=== PATIENT | female | born 1955 | race Caucasian/White ===

== ENCOUNTER 2020-12-28 11:53 | Outpatient (RCR) | payer MEDICARE, SELFPAY ==
[2020-12-28] MEDS: COVID-19 VACC, MRNA(PFIZER)/PF 30 MCG/0.3 ML SYRINGE IM (13:40)
[2021-01-18] MEDS: COVID-19 VACC, MRNA(PFIZER)/PF 30 MCG/0.3 ML SYRINGE IM (13:35)
== END 2021-03-29 23:59 ==
LOC: IMMUN 11:53
PROVIDERS: PCP Nurse Practitioner Primary Care; Visit Provider Family Medicine
DX: Z23 Encounter for immunization (principal)
CPT/HCPCS: 0001A; 0002A; 91300

== ENCOUNTER → 2021-07-12 10:39 | Outpatient (CLI) | payer MEDICARE, SELFPAY ==
[2021-07-12 10:50] LABS: Mucous, Urine 0 SEEN /hpf (<or=2+)
[2021-07-12 10:58] LABS: Color, Urine Yellow (Yellow); Glucose, Dipstick Normal (Normal); Ketone-Dipstick Negative (Negative); Leukocyte Esterase-Dipstick Negative /ul (Negative); Nitrite-Dipstick Negative (Negative); Occult Blood-Urine 10 /ul (Negative); Protein-Dipstick Negative (Negative); Specific Gravity, Urine 1.015 (1.002-1.030); Urine Bilirubin Dipstick Negative (Negative); Urine Clarity Clear (Clear); Urine Urobilinogen Normal (Normal)
[2021-07-12 11:11] LABS: Bacteria RARE /hpf (None Seen); Red Blood Cells-Urine 0-5 SEEN /hpf (0-5); Squamous Epithelial Cells - UA 0-5 SEEN /hpf (5-10); White Blood Cells 0-5 SEEN /hpf (0-5)
== END ==
PROVIDERS: PCP Nurse Practitioner Primary Care; Referring Provider Nurse Practitioner Adult Health; Visit Provider Nurse Practitioner Adult Health
DX: R31.29 Other microscopic hematuria (principal)
CPT/HCPCS: 81001; 87086; 87088

== ENCOUNTER → 2021-08-22 15:14 | Outpatient (CLI) | payer MEDICARE, OTHER, SELFPAY ==
--- NOTE | 2021-08-22 15:28 | MRI_ITS ---
STUDY: MRI BRAIN WITH AND WITHOUT CONTRAST (ATTENTION INTERNAL AUDITORY CANALS - I.A.C.''s) REASON FOR EXAM: Female, 66 years old. [place], frontal head pressure, dizziness TECHNIQUE: Standardized multiplanar fat and water weighted pulse sequences were obtained. IV 25cc dotarem was administered for the contrast portion of the examination. COMPARISON: None. FINDINGS: Normal bilateral temporal bones. Normal bilateral internal auditory canals. There is no demonstrated intracanalicular or cisternal vestibular schwannoma (acoustic neuroma). There is no enhancement of the bilateral VIIth or VIIIth cranial nerves. Normal bilateral cochlea, vestibules and semicircular canals. Mild cerebral and cerebellar atrophy. Minor periventricular white matter ischemic changes without mass effect or restricted diffusion Normal bilateral basal ganglia. Normal thalami. Normal flow voids within the major intracranial circulation suggesting patency by spin echo criteria. Normal venous enhancement. There is no enhancing intra-axial or extra-axial abnormality. There is no extra-axial fluid accumulation. Normal sella turcica, pituitary gland, infundibular stalk, optic chiasm and hypothalamus. Normal tectal plate and pineal gland. Normal midbrain, alvaro and medulla. Normal cerebellum. Normal basal cisterns. Postsurgical changes of the left orbit within the constraints of a routine brain study. Normal visualized paranasal sinuses. Normal calvarium and skull base. Normal visualized soft tissue structures. Normal visualized upper cervical spine. MRI/Brain W/WO Contrast IMPRESSION: Mild cerebral and cerebellar atrophy with periventricular white matter ischemic changes. No evidence for acute infarct No evidence for acoustic or vestibular schwannoma Electronically Signed: Nico Hillman MD at 17:38 EDT , Service support ,
[2021-08-23 10:25] LABS: CREATININE FINGERSTICK 1.2 mg/dL (0.55-1.02)
== END ==
PROVIDERS: PCP Nurse Practitioner Primary Care; Visit Provider Otolaryngology
DX: R27.0 Ataxia, unspecified (principal)
CPT/HCPCS: 70553; A9575

== ENCOUNTER → 2021-09-06 09:11 | Outpatient (CLI) | payer MEDICARE, OTHER, SELFPAY ==
[2021-09-06 10:23] LABS: AST(SGOT) 20 U/L (15-37); Alanine Aminotransfer ALT/SGPT 24 U/L (13-56); Albumin, Serum 3.5 g/dL (3.2-5.0); Alkaline Phosphatase 106 U/L (45-117); Bilirubin, Direct 0.15 mg/dL (0.00-0.30); Cholesterol 196 mg/dL (200); Globulin 4.1 g/dL (2.2-4.2); High Density Lipoprotein 40 mg/dL; Protein, Total 7.6 g/dL (6.4-8.2); Triglycerides 160 mg/dL; Very Low Density Lipoprotein 32 mg/dL (5-40)
== END ==
PROVIDERS: PCP Nurse Practitioner Primary Care; Referring Provider Internal Medicine Cardiovascular Disease; Visit Provider Internal Medicine Cardiovascular Disease
DX: I42.9 Cardiomyopathy, unspecified (principal); E78.00 Pure hypercholesterolemia, unspecified; I10 Essential (primary) hypertension; I25.10 Atherosclerotic heart disease of native coronary artery without angina pectoris; I47.1 Supraventricular tachycardia; I48.91 Unspecified atrial fibrillation
CPT/HCPCS: 36415; 80061; 80076

== ENCOUNTER → 2021-09-08 08:49 | Outpatient (CLI) | payer MEDICARE, OTHER, SELFPAY ==
--- NOTE | 2021-09-08 08:52 | ECHOCS_ITS ---
Reason For Study: CAD/ASHD Procedure This was a 2D Doppler, Color Flow transthoracic echocardiogram. The study was technically difficult. Contrast injection was performed. Exam performed in department. Left Ventricle Based upon the 2D echocardiographic contrast images obtained there appears to be grossly normal left ventricular size, wall motion, and borderline low LV systolic function. The estimated ejection fraction is 50 %. Diastolic function is indeterminate. Right Ventricle Normal RV size. Normal systolic function. Atria Normal left atrium. Normal right atrium. No doppler evidence for ASD. Mitral Valve There is no mitral annular calcification. Normal mitral valve. Trivial mitral valve insufficiency. Tricuspid Valve Normal tricuspid valve. Mild tricuspid valve insufficiency. Right ventricular systolic pressure estimated to be 36 mmHg. Aortic Valve Trisinus/trileaflet aortic valve. Normal aortic valve. Pulmonic Valve The pulmonic valve is not well visualized. Trivial pulmonic valve insufficiency. Great Vessels Normal sized aortic root. Pericardium/Pleural No pericardial effusion. Medication 22 gauge I.V. with prn adaptor inserted into left arm. Diluted definity 3ml given slow IV push to enhance endocardial definition. MMode/2D Measurements & Calculations LVIDd: 5.0 cm IVSd: 0.88 cm Ao root diam: 2.8 cm LVIDs: 3.3 cm LVPWd: 0.96 cm RVDd: 3.1 cm FS: 34.4 % LAV(MOD-bp): 29.6 ml LVAd ap4: 32.0 cm2 SV(MOD-sp4): 68.9 ml LAV(MOD-bp) Indexed: 12.2 ml/m2 LVLd ap4: 7.3 cm LAV(MOD-sp2): 28.1 ml EDV(MOD-sp4): 115.0 ml LAV(MOD-sp4): 28.7 ml EDV(sp4-el): 118.4 ml LVAs ap4: 18.6 cm2 LVLs ap4: 6.1 cm ESV(MOD-sp4): 46.1 ml ESV(sp4-el): 48.4 ml EF(MOD-sp4): 59.9 % EF(sp4-el): 59.1 % SV(sp4-el): 70.0 ml LA A4 area: 12.7 cm2 LA dimension(2D): 3.8 cm RA A4 area: 11.1 cm2 Time Measurements MV dec time: 0.20 sec Doppler Measurements & Calculations MV E max roshan: 54.0 cm/sec Lat Peak E' Roshan: 8.0 cm/sec Med Peak E' Roshan: 6.5 cm/sec MV A max roshan: 64.7 cm/sec E/E' lat: 6.8 E/E' med: 8.4 MV E/A: 0.83 Ao V2 max: 153.2 cm/sec LV V1 max: 99.5 cm/sec PA V2 max: 123.7 cm/sec Ao max P.4 mmHg LV V1 max P.0 mmHg TR max roshan: 288.4 cm/sec TR max P.3 mmHg ECHO/Echo Complete W/ Contrast Interpretation Summary The study was technically difficult. Contrast injection was performed. Based upon the 2D echocardiographic contrast images obtained there appears to b e grossly normal left ventricular size, wall motion, and borderline low LV systolic function. The estimated ejection fraction is 50 %. Trivial mitral valve insufficiency. Mild tricuspid valve insufficiency. Trivial pulmonic valve insufficiency. Right ventricular systolic pressure estimated to be 36 mmHg. Diastolic function is indeterminate. Ordering Physician: Neo Beltran Referring Physician: CADEN KIMBALL Performed By: Ysabel Jefferson RDCS
== END ==
PROVIDERS: PCP Nurse Practitioner Primary Care; Referring Provider Internal Medicine Cardiovascular Disease; Visit Provider Internal Medicine Cardiovascular Disease
DX: I25.10 Atherosclerotic heart disease of native coronary artery without angina pectoris (principal); I10 Essential (primary) hypertension; I42.9 Cardiomyopathy, unspecified; I47.1 Supraventricular tachycardia; I48.91 Unspecified atrial fibrillation
CPT/HCPCS: 93225; 93226; 93306; Q9957; A4216; C8929; J3490

== ENCOUNTER → 2021-09-27 06:03 | Outpatient (CLI) | payer MEDICARE, OTHER, SELFPAY ==
--- NOTE | 2021-09-27 07:58 | STRESSREP_ITS ---
Stress Test Report Date: 09-27-2021 Procedure: Pharmacologic stress nuclear imaging study Indications: Abnormal ECG/left bundle branch block; atrial fibrillation; CAD; cardiomyopathy Consent: Per the patient Procedure: The patient underwent pharmacologic (Regadenoson 0.4mg ) evaluation with a peak heart rate of 109 beats per minute (71%predicted maximal heart rate) and a peak blood pressure of 140/70 mmHg. The baseline ECG demonstrated atrial fibrillation; nonspecific IVCD (left- sided). The peak pharmacologic ECG demonstrated no obvious ECG changes. There were occasional PVCs pretest, during infusion, and in recovery. There was no complaint of chest discomfort during pharmacologic infusion or recovery. The examination was discontinued secondary to completion of protocol. Impression: 1. Pharmacologic (Regadenoson) evaluation 2. Peak pharmacologic ECG with continued nonspecific IVCD (left-sided). 3. There were occasional PVCs pretest, during infusion, and recovery. 4. Nuclear images pending Myocardial perfusion imaging study: Technique: The patient was injected with 14.9 millicuries of technetium 99m Cardiolite and subsequently rest SPECT Cardiolite nuclear imaging was obtained in the horizontal long, vertical long, and short axis views. The patient underwent pharmacologic (Regadenoson) evaluation with a peak heart rate of 109 beats per minute (71% percent predicted maximal heart rate) and a peak blood pressure of 140/70 mmHg. The patient was injected with 44.6 millicuries of technetium 99m Cardiolite and subsequently stress SPECT Cardiolite nuclear imaging was obtained in the horizontal long, vertical long, and short axis views. A gated Cardiolite study at peak stress was obtained. Interpretation: Rest and stress SPECT Cardiolite nuclear imaging status post realignment, normalization, and attenuation correction demonstrate the appearance of body motion during image acquisition and the appearance of an area of diminished tracer uptake near the apical segments without significant change between rest and stress and at rest the appearance of additional diminished myocardial perfusion/tracer uptake in the distal anterior segments which appears to improve following stress. There is end systolic thickening and brightening. The gated Cardiolite study demonstrates myocardial thickening and inward wall motion. The reported LVEF is 61%. Impression: 1. Rest and stress SPECT Cardiolite nuclear imaging demonstrate an element of body motion during image acquisition as well as an element of diminished myoc ardial perfusion/tracer uptake near the apical segments without significant change between rest and stress appearing compatible with physiologic apical thinning and additional diminished myocardial perfusion/tracer uptake in the distal anterior segments at rest which appears to improve following stress appearing compatible with the effects of shifting soft tissue attenuation/artifact with no myocardial perfusion changes considered diagnostic for associated stress-induced myocardial ischemia. 2. The gated Cardiolite study reports an LVEF of 61%. This note was generated with [employer] software. It may contain incorrect words, spelling, and punctuation that were not noted in checking the note before signing.
== END ==
PROVIDERS: PCP Nurse Practitioner Primary Care; Referring Provider Internal Medicine Cardiovascular Disease; Visit Provider Internal Medicine Cardiovascular Disease
DX: I25.10 Atherosclerotic heart disease of native coronary artery without angina pectoris (principal); I42.9 Cardiomyopathy, unspecified; I44.7 Left bundle-branch block, unspecified
CPT/HCPCS: 78452; 93017; A9500; A4216; J2785

== ENCOUNTER → 2023-01-08 | Outpatient (CLI) | payer MEDICARE, OTHER, SELFPAY | END | disposition home or self-care (01) | LOC: SL 20:16 | PROVIDERS: PCP Nurse Practitioner Primary Care; Referring Provider Nurse Practitioner Acute Care; Visit Provider Nurse Practitioner Acute Care | DX: G47.33 Obstructive sleep apnea (adult) (pediatric) (principal) | CPT/HCPCS: 95811 ==

== ENCOUNTER → 2023-09-07 | Outpatient (CLI) | payer MEDICARE, OTHER, SELFPAY ==
[2023-09-07 13:45] LABS: Absolute Lymphocyte Count 1.35 X10^3/uL (0.83-4.51); Absolute Neutrophil Count 6.2 X10^3/uL (2.0-7.7); Basophil# 0.05 X10^3/uL; Basophil% 0.6 % (0-1); Eosinophil# 0.52 X10^3/uL; Hematocrit 40.5 % (37-47); Hemoglobin 12.6 g/dL (12.0-15.0); Lymphocyte # 1.35 X10^3/ul (0.83-4.51); Lymphocyte % 15.5 % (19-41); Mean Corp Hgb Conc 31.1 g/dL (32-36); Mean Corpuscular Hgb 28.4 pg (27.0-32.0); Mean Corpuscular Volume 91.4 fL (81-99); Mean Platelet Vol. 10.6 fl (6.2-12.0); Monocyte# 0.54 X10^3/uL; Monocyte% 6.2 % (0-10); NRBC Flagged by Analyzer 0 % (0-5); Neutrophil # 6.22 X10^3/uL (2.7-7.7); Neutrophil % 71.2 % (47-70); Platelet Count 357 K/mm3 (150-450); RBC Distribution Width CV 12.4 % (11.6-14.6); Red Blood Count 4.43 M/mm3 (4.2-5.4); White Blood Count 8.7 K/mm3 (4.4-11.0)
[2023-09-07 14:11] LABS: BNP,B-Type NATRIURETIC PEPTIDE 43.4 pg/mL (0-100)
[2023-09-07 14:12] LABS: AST(SGOT) 14 U/L (15-37); Alanine Aminotransfer ALT/SGPT 20 U/L (13-56); Albumin, Serum 3.8 g/dL (3.2-5.0); Alkaline Phosphatase 127 U/L (45-117); Anion Gap 6 (5-15); BUN 31 mg/dL (7-18); BUN/Creat Ratio 20.7 RATIO (10-20); Calcium,Total 9.1 mg/dL (8.5-10.1); Chloride 105 mmol/L (98-107); EST Glomerular Filtration Rate 37 mL/min (>60); Est Glom Filt Rate - Afr Amer 44 mL/min (>60); Globulin 3.8 g/dL (2.2-4.2); Glucose 82 mg/dL (74-106); Potassium 4.1 mmol/L (3.5-5.1); Protein, Total 7.6 g/dL (6.4-8.2); Sodium Level 141 mmol/L (136-145)
== END | disposition home or self-care (01) ==
LOC: LAB 11:53
PROVIDERS: PCP Nurse Practitioner Primary Care; Referring Provider Nurse Practitioner Family; Visit Provider Nurse Practitioner Family
DX: I42.9 Cardiomyopathy, unspecified (principal); I48.91 Unspecified atrial fibrillation; I25.10 Atherosclerotic heart disease of native coronary artery without angina pectoris; Z98.890 Other specified postprocedural states
CPT/HCPCS: 36415; 80053; 83880; 85025

== ENCOUNTER → 2023-11-13 | Outpatient (CLI) | payer MEDICARE, OTHER, SELFPAY ==
--- NOTE | 2023-11-13 15:16 | RAD_ITS ---
STUDY: X-RAY - ABDOMEN/PELVIS REASON FOR EXAM: Female, 68 years old. ABD PAIN TECHNIQUE: Single AP view of the abdomen / pelvis. COMPARISON: None. FINDINGS: Normal visualized lung bases. There is an unremarkable bowel gas pattern. Bilateral total hip arthroplasties. Anastomotic sutures in the pelvis. Increased stool in the colon. The visualized liver, spleen and kidneys are grossly normal in size and morphology. Normal soft tissue structures. Spondylosis. RAD/Abdomen Single View IMPRESSION: Increased fecal loading Electronically Signed: Jurgen Bean MD at 19:48 EST ,
== END | disposition home or self-care (01) ==
LOC: RAD 15:07
PROVIDERS: PCP Nurse Practitioner Primary Care; Referring Provider Nurse Practitioner; Visit Provider Nurse Practitioner
DX: R10.84 Generalized abdominal pain (principal)
CPT/HCPCS: 74018

== ENCOUNTER → 2023-12-07 | Outpatient (CLI) | payer MEDICARE, OTHER, SELFPAY ==
--- NOTE | 2023-12-07 06:37 | ECHOCS_ITS ---
Reason For Study: LBBB, SOB Procedure This was a 2D Doppler, Color Flow transthoracic echocardiogram. The study was technically difficult. Exam performed in department. Left Ventricle Normal LV size. The left ventricular ejection fraction is 50 %. Stage 1 diastolic dysfunction. There is borderline global hypokinesis of the left ventricle. Right Ventricle Normal RV size. Normal systolic function. Atria Normal left atrium. Normal right atrium. Mitral Valve Normal mitral valve. Mild (1+) eccentric mitral valve insufficiency. Tricuspid Valve Normal tricuspid valve. Mild (1+) tricuspid valve insufficiency. Pulmonary artery systolic pressure is 37 mmHg. Aortic Valve Trisinus/trileaflet aortic valve. Pulmonic Valve The pulmonic valve is not well visualized. Great Vessels Normal aortic root. Pericardium/Pleural No pericardial effusion. Medication Diluted definity 2ml given slow IV push to enhance endocardial definition. MMode/2D Measurements & Calculations LVIDd: 4.6 cm IVSd: 1.2 cm Ao root diam: 2.7 cm LVIDs: 3.1 cm LVPWd: 1.1 cm RVDd: 3.1 cm FS: 33.5 % LAV(MOD-bp): 44.1 ml LVAd ap4: 31.9 cm2 SV(MOD-sp4): 57.1 ml LAV(MOD-bp) Indexed: 17.6 ml/m2 LVLd ap4: 7.2 cm LAV(MOD-sp2): 32.0 ml EDV(MOD-sp4): 119.5 ml LAV(MOD-sp4): 50.4 ml EDV(sp4-el): 120.2 ml LVAs ap4: 20.6 cm2 LVLs ap4: 5.8 cm ESV(MOD-sp4): 62.5 ml ESV(sp4-el): 61.8 ml EF(MOD-sp4): 47.7 % EF(sp4-el): 48.6 % SV(sp4-el): 58.4 ml LA A4 area: 19.0 cm2 LA dimension(2D): 4.2 cm RA A4 area: 14.5 cm2 TAPSE: 2.2 cm Doppler Measurements & Calculations MV E max roshan: 47.7 cm/sec Lat Peak E' Roshan: 6.6 cm/sec Med Peak E' Roshan: 4.6 cm/sec MV A max roshan: 94.1 cm/sec E/E' lat: 7.2 E/E' med: 10.3 MV E/A: 0.51 Ao V2 max: 168.2 cm/sec LV V1 max: 110.5 cm/sec PA V2 max: 147.4 cm/sec Ao max P.3 mmHg LV V1 max P.9 mmHg Ao V2 mean: 116.3 cm/sec LV V1 mean P.8 mmHg Ao mean P.2 mmHg LV V1 mean: 79.3 cm/sec Ao V2 VTI: 36.3 cm LV V1 VTI: 24.4 cm AV (velocity ratio): 0.67 TR max roshan: 288.4 cm/sec TR max P.3 mmHg ECHO/Echo Complete W/ Contrast Interpretation Summary The left ventricular ejection fraction is 50 %. Normal LV size. There is borderline global hypokinesis of the left ventricle. Stage 1 diastolic dysfunction. Contrast injection was performed. Ordering Physician: Ez Mcnair Referring Physician: Meliton Iqbal Performed By: Octavia Chaudhry RDCS
--- OUTSIDE RECORDS SUMMARY | 2023-12-07 06:37 | XMS RPT_ITS | CCD ---
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 Name Role Phone JIGAR STOVER, CADEN Primary Care Physician Delfina Giordano Unavailable Unavailable Guerda Damon Unavailable Unavailable ROCK SILK SOAKER-NUTRITION TECH, GABRIEL Attending Unavailabl e BALTES SILK SOAKER-NUTRITION TECH, CADEN Primary Care Unavailabl e BALTES SILK SOAKER-NUTRITION TECH, CADEN Attending Unavailabl e BALTES SILK SOAKER-NUTRITION TECH, CADEN Primary Care Unavailabl e BALTES SILK SOAKER-NUTRITION TECH, CADEN Primary Care Unavailabl e BALTES SILK SOAKER-NUTRITION TECH, CADEN Attending Unavailabl han ROTHMAN MD, DR VASQUEZ Attending Unavailable BALTES SILK SOAKER-NUTRITION TECH, CADEN Primary Care Unavailabl e CHEVERINE SILK SOAKER-NUTRITION TECH, MIGUELINA Attending Unavail able BALTES SILK SOAKER-NUTRITION TECH, CADEN Primary Care Unavailabl e BALTES SILK SOAKER-NUTRITION TECH, CADEN Primary Care Unavailabl e BALTES SILK SOAKER-NUTRITION TECH, CADEN Attending Unavailabl e BALTES SILK SOAKER-NUTRITION TECH, CADEN Primary Care Unavailabl e CHEVERINE SILK SOAKER-NUTRITION TECH, MIGUELINA Attending Unavail able Allergies Allergy Classification Reported Allergen(s) Allergy Type Date of Onset Reaction(s) Facility (19 sources) seasonal enviromental Allergy to substance typical [facility] Medications Current Medications Medication Drug Class(es) Dates Sig (Normalized) Sig (Original) amoxicillin 500 mg oral capsule (1 source) Penicillin-class Antibacterial Start: 01-28-2022 End: 02-04-2022 amoxicillin 500 mg oral capsule Dose : 500 mg = 1 cap(s), Oral, TID, X 7 day(s), # 21 cap(s), 0 Refill(s), 02/04/22 8:24:00 EDT, Pharmacy: [facility]/pharmacy #[id number], 174, cm, 01/28/22 8:04:00 EDT, Height Start Date: 01/28/22 Stop Date: 02/04/22 Status: Ordered apixaban 5 mg oral tablet (20 sources) Factor Xa Inhibitor Start: 11-22-2020 take 1 tablet by mouth twice daily Eliquis 5 mg oral tablet See Instructions, TAKE 1 TABLET BY MOUTH TWICE A DAY, # 180 tab(s), 3 Refill(s), Pharmacy: [facility] STORE [id number], 177.8, cm, 10/01/20 12:06:00 EST, Height, 118.2, kg, 10/01/20 12:06:00 EST, Dosing Weight Start Date: 11/22/20 Status: Ordered aspirin 81 mg delayed release oral tablet (20 sources) Platelet Aggregation Inhibitor, Nonsteroidal Anti-inflammatory Drug Start: 08-27-2018 aspirin 81 mg oral delayed release tablet Dose : 81 mg = 1 tab(s), Oral, Daily, 0 Refill(s) Start Date: 08/27/18 Status: Ordered Problems Active Problems Problem Classification Problem Date Documented Da te Episodic/Chronic Cancer of breast (20 sources) Malignant tumor of breast ; Translations: [Malignant neoplasm of upper-outer quadrant of female breast] Onset: 06-18-2014 07-02-2020 Chronic Past or Other Problems Problem Classification Problem Date Documented Da te Episodic/Chronic Abdominal hernia (20 sources) Umbilical hernia Onset: 02-19-2014 06-16-2014 Episodic Results Test Name Value Interpretation Reference Range Facil ity Vital Signs Date Time Vital Sign Value Performing Clinician Faci lity 10-17-2022 07:11050 Body height 177.8 cm LACHELLE PLUNKETT PA-C [facility] 10-17-2022 07: Body temperature 98.42 [degF] LACHELLE PLUNKETT PA-C [facility] 10-17-2022 07:11050 Body weight 122.7 kg LACHELLE PLUNKETT PA-C [facility] 10-17-2022 07:11050 Body weight 38.81 kg/m2 LACHELLE WEISBURN PA-C [facility] 10-17-2022 07:11-0500 Diastolic Blood Pressure Non-Invasive 77 1 LACHELLE FELIPEBURN PA-C [facility] 10-17-2022 07:11-0500 Heart rate 103 /min LACHLELE FELIPEBURN PA-C [facility] 10-17-2022 07:11-0500 Respiratory rate 18 /min LACHELLE FELIPEBURN PA-C [facility] 10-17-2022 07:11-0500 Systolic Blood Pressure Non-Invasive 146 1 LACHELLE FELIPEBURN PA-C [facility] 04-07-2022 14:24-0400 Diastolic Blood Pressure NBP 69 1 MICKEY SARAVIA MD [facility] 04-07-2022 14:24-0400 Heart rate 86 /min MICKEY SARAVIA MD [facility] 04-07-2022 14:24-0400 Respiratory rate 16 /min MICKEY SARAVIA MD [facility] 04-07-2022 14:24-0400 Systolic Blood Pressure NBP 101 1 MICKEY SARAVIA MD [facility] 04-07-2022 14:16-0400 Diastolic Blood Pressure NBP 72 1 MICKEY SARAVIA MD [facility] 04-07-2022 14:16-0400 Heart rate 93 /min MICKEY SARAVIA MD [facility] 04-07-2022 14:16-0400 Respiratory rate 17 /min MICKEY SARAVIA MD [facility] 04-07-2022 14:16-0400 Systolic Blood Pressure NBP 109 1 MICKEY SARAVIA MD [facility] 04-07-2022 14:05-0400 Body temperature 96.98 [degF] MICKEY SARAVIA MD [facility] 04-07-2022 14:05-0400 Diastolic Blood Pressure NBP 60 1 MICKEY SARAVIA MD [facility] 04-07-2022 14:05-0400 Heart rate 90 /min MICKEY SARAVIA MD [facility] 04-07-2022 14:05-0400 Respiratory rate 19 /min MICKEY SARAVIA MD [facility] 04-07-2022 14:05-0400 Systolic Blood Pressure NBP 102 1 MICKEY SARAVIA MD [facility] 04-07-2022 11:50-0400 Body height 177.8 cm MICKEY SARAVIA MD [facility] 04-07-2022 11:50-0400 Body temperature 98.24 [degF] MICKEY SARAVIA MD [facility] 04-07-2022 11:50-0400 Body weight 122.7 kg MICKEY SARAVIA MD [facility] 04-07-2022 11:50-0400 Body weight 38.81 kg/m2 MICKEY SARAVIA MD [facility] 04-07-2022 11:50-0400 diastolic 71 mm[Hg] MICKEY SARAVIA MD [facility] 04-07-2022 11:50-0400 Heart rate 88 /min MICKEY SARAVIA MD [facility] 04-07-2022 11:50-0400 systolic 112 mm[Hg] MICKEY SARAVIA MD [facility] 02-16-2022 10:32-0400 Body height [address] MICKEY BLANCAS DO [facility] 02-16-2022 10:32-0400 Body temperature 98.78 [degF] DR MICKEY BLANCAS DO [facility] 02-16-2022 10:32-0400 Body weight [address] MICKEY BLANCAS DO [facility] 02-16-2022 10:32-0400 Body weight 38.94 kg/m2 DR MICKEY BLANCAS DO [facility] Encounters Encounter Date Encounter Type Care Provider Facility Start: 11-27-2023 End: 11-27-2023 Patient encounter procedure AMY JONES CK [facility] Start: 11-16-[address] PEDRO ROTHMAN MD Facilit y:A Start: 10-20-2023 End: 10-21-2023 ambulatory CADEN BALPB SILK SOAKER-NUTRITION TECH Facility:B Start: 10-20-2023 End: 10-20-2023 Patient encounter procedure CADEN BALPB SILK SOAKER-NUTRITION TECH [facility] Start: 10-01-2023 End: 10-02-2023 ambulatory CADEN BALTES SILK SOAKER-NUTRITION TECH Facility:B Start: 10-01-2023 End: 10-01-2023 Patient encounter procedure MIGUELINA CHEVERINE SILK SOAKER-NUTRITION TECH [facility] Start: 09-21-2023 ambulatory MIGUELINA CHEVERINE SILK SOAKER-NUTRITION TECH Facility:A Start: 07-16-2023 End: 07-17-2023 ambulatory ACDEN KIMBALL SILK SOAKER-NUTRITION TECH Facility:B Start: 07-16-2023 End: 07-16-2023 Patient encounter procedure CADEN KIMBALL SILK SOAKER-NUTRITION TECH [facility] Start: 06-18-2023 End: 06-19-2023 ambulatory GABRIEL BONILLA SILK SOAKER-NUTRITION TECH Facility:B Start: 06-18-2023 End: 06-18-2023 Patient encounter procedure GABRIEL BONILLA SILK SOAKER-NUTRITION TECH [facility] Start: 11-06-2022 End: 11-06-2022 Patient encounter procedure EVER DALLAS MD [facility] Start: 10-17-2022 End: 10-17-2022 Patient encounter procedure LACHELLE PLUNKETT PA-C [facility] Start: 09-29-2022 End: 09-29-2022 Patient encounter procedure CADEN JIGAR SILK SOAKER-NUTRITION TECH [facility] Start: 09-29-2022 End: 09-29-2022 Well adult monitoring check done CADEN KIMBALL SILK SOAKER-NUTRITION TECH [facility] Start: 09-25-2022 End: 09-25-2022 Patient encounter procedure EVER DALLAS MD [facility] Start: 04-11-2022 End: 04-11-2022 Patient encounter procedure EVER DALLAS MD [facility] Start: 04-07-2022 End: 04-07-2022 Minor Procedure MICKEY SARAVIA MD [facility] Start: 03-21-2022 End: 03-21-[address] DARRIUS SHARPE MD [facility] Start: 02-16-2022 End: 02-16-[address] MICKEY BLANCAS DO [facility] Start: 01-28-2022 End: 02-01-2022 Outreach Lab GAYLE WILSON MD [facility] Start: 10-26-2021 End: 10-26-2021 Patient encounter procedure CADEN KAY DO [facility] Start: 10-04-2021 End: 10-04-2021 Patient encounter procedure EVER DALLAS MD [facility] Start: 09-23-2021 End: 09-23-2021 Patient encounter procedure EVER DALLAS MD [facility] Start: 09-19-2021 End: 09-19-2021 Patient encounter procedure EVER DALLAS MD [facility] Start: 08-22-2021 End: 08-22-2021 Patient encounter procedure CADEN KIMBALL SILK SOAKER-NUTRITION TECH [facility] Start: 08-04-2021 End: 08-04-2021 Patient encounter procedure CRISTÓBAL PEREIRA NUTRITION TECH [facility] Procedures Date Procedure Procedure Detail Performing Clinician Start: 09-21-2021 Mammography EVER KUHN MD Start: 10-01-2018 Cardiac catheterization CRISTÓBAL PEREIRA NUTRITION TECH Immunizations Immunization Date Immunization Notes Care Provider Fa [facility] 07-27-2023 influenza, high dose seasonal, preservative-free; Translations: [Fluad Quadrivalent PF ] MIGUELINA KAUR SILK SOAKER-NUTRITION TECH [facility] 09-26-2022 pneumococcal polysaccharide vaccine, 23 valent; Translations: [Pneumovax 23] CADEN KIMBALL SILK SOAKER-NUTRITION TECH [facility] 09-26-2022 influenza, high dose seasonal, preservative-free CADEN KIMBALL SILK SOAKER-NUTRITION TECH [facility] Payers Date Payer Category Payer Medicare [id number] 2022 Unknown [id number] 2022 Unknown [id number] 1955 Unknown [id number] [id number] 1955 Unknown [id number] 2.16.8 [id number] 1955 Unknown [id number] 2.16.8 [id number] 1955 Unknown [id number] 2.16.8 [id number] 1955 Unknown [id number] 2.16.8 [id number] 1955 Unknown [id number] 2.16.8 [id number] 1955 Unknown [id number] 2.16.8 [id number] Social History Date Type Detail Facility Start: 01-07-2019 Never smoked t obacco (finding) [facility] Sex Assigned At Female [facility] Functional Status Date Assessment Result Facility 10-17-2022 Functional Status ID band on [facility] 04-07-2022 Functional Status Sleeping [facility] 04-07-2022 Functional Status Maintained [facility] 02-16-[address] [facility] Mental Status Date Assessment Result Facility 10-17-2022 Mental Status Orientation Oriented x 4 [facility] 04-07-2022 Mental Status Oriented x 4 [facility] 04-07-2022 Mental Status [facility] 02-16-2022 Mental Status [facility] Clinical Notes 02-16-2022 to 09-23-2023 LaboratoryRadiology Note Date & Type Note Facility 09-23-2023 Evaluation + Plan note Future Appointments Appointment Date:11/28/2023 09:45:00 AM Scheduled Provider: Location:[facility] Appointment Type:PC Nurse Injection Appointment Date:10/21/2024 09:00:00 AM Scheduled Provider: Location:[facility] Appointment Type:MA Mammogram Screening Bilateral w/ Scar Appointment Date:11/27/2024 11:30:00 AM Scheduled Provider: Location:[facility] Appointment Type:[facility] OV Follow Up Future Scheduled TestsFerritin 11/27/24Complete Blood Count 11/27/24Iron Studies 11/27/24Complete Metabolic Panel 12/26/23Complete Metabolic Panel 11/27/24MA Mammo Screening Bilateral w/ Scar 10/21/24MA Mammo Screening Bilateral w/ Scar 11/20/23 [facility] 07-16-2023 Note ORIGINAL EXAMINATION: BONE DENSITOMETRY 07/16/2023 11:18 am TECHNIQUE: A bone density dual x-ray absorptiometry (DEXA) scan was performed of the lumbar spine and left forearm. COMPARISON: 05/29/2017 HISTORY: ORDERING SYSTEM PROVIDED HISTORY: Reason for Exam: Osteoporosis Screening FINDINGS: T Score Left Forearm: 0.3 Left Forearm: 0.702 (g/cm2) T Score Lumbar Spine: 3.1 Lumbar Spine: 1.393 (g/cmd2) BMD Change from previous Lumbar Spine: 10.3% IMPRESSION: Normal bone mineral density by WHO criteria. *By the World Health Organization criteria: (Comparing with young normal sex matched population) - Normal: T-score at or above -1 SD (standard deviation) - Osteopenia: T-score between -1 and -2.5 SD - Osteoporosis: T-score at or below -2.5 SD Interpreted by: Tom Santos DO Preliminary Report By: Tom Santos DO Electronically signed By Tom Santos DO Dictated Date: 07/16/2023 1:46:32 PM Prelim Date: 07/16/2023 1:47:23 PM Sign Date: 07/16/2023 1:47:23 PM Ordering Provider: CADEN KIMBALL [facility] Interventional Radiology Focused Preprocedure History/Physical Reason for Visit PAIN IN LEFT HIP History of Presenting Illness/Planned IR Procedure Left hip pain. Hip replacement approximately 6-7 years ago. Patient had iliopsoas tendon injection on 02/16/2022 and states that it was very helpful. patient is on Eliquis and last dose was this morning. Allergies (1) ActiveReaction seasonal enviromentaltypical Home Medications (12) Active aspirin 81 mg oral delayed release tablet 81 mg = 1 tab(s), Oral, Daily atorvastatin 20 mg oral tablet 20 mg = 1 tab(s), Oral, qDay Eliquis 5 mg oral tablet See Instructions ferrous sulfate 325 mg (65 mg elemental iron) oral delayed release tablet 325 mg = 1 tab(s), Oral, qDay hydroCHLOROthiazide 25 mg oral tablet 25 mg = 1 tab(s), Oral, qDay hydrochlorothiazide-quinapril 25 mg-20 mg oral tablet 1 tab(s), Oral, Daily meloxicam 15 mg oral tablet See Instructions Metoprolol Succinate ER 100 mg oral TABLET extended release See Instructions omeprazole 40 mg oral delayed release capsule 40 mg = 1 cap(s), Oral, qDay quinapril 20 mg oral tablet 20 mg = 1 tab(s), Oral, Daily trospium 60 mg oral capsule, extended release 60 mg = 1 cap(s), Oral, qAM Vitamin D3 125 mcg (5000 intl units) oral tablet 125 mcg = 1 tab(s), Oral, qDay Problem List/Past Medical History BREAST CANCER SVT (Renamed from CORONARY SINUS RHYTHM DISORDER) Umbilical hernia ARTHRITIS (Renamed from ARTHRITIS OR POLYARTHRITIS, RHEUMATOID) ATRIAL FIBRILLATION (Renamed from A-FIB) B12 deficiency CAD (CORONARY ARTERY DISEASE) CARDIOMYOPATHY COLON CANCER Encounter for screening colonoscopy Glasses 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 Surgical History Mammogram: 09/2021 Cardiac catheterization procedure: 10/01/18 Mammogram: 06/11/17 Sclerotherapy: 05/2017 Bone density scan: 05/29/17 Colonoscopy: 01/2017 Colonoscopic polypectomy: 02/01/17 Radiation: 08/2014 Biopsy of breast: 06/04/14 Lumpectomy, L: 12/2013 Cataract extraction, L: 2010 Knee replacement: 2010 Arthroscopy of knee with meniscus repair: 2005 Colonoscopy Chemotherapy Hysterectomy Total hip replacement Arthroplasty of the knee Colonoscopy (procedure) Family History Mother: Arthritis; Heart attack; Heart disease; Hypertension Father: Malignant neoplasm of brain Brother: Alcohol abuse; Cancer; Hypertension Sister: Hypertension; Malignant tumor of kidney Social History Alcohol Risk Assessment: Denies Alcohol Use; Details: Type: Wine. Frequency: 1-2 times per year. Employment/School Details: Status: Employed. 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 Nutrition/Health Details: Type of diet: Regular. Appetite Excellent. Eating Difficulties None. Details: Caffeine intake amount: Decaf coffee. Substance Abuse Risk Assessment: Denies Substance Abuse; Details: Use: Never. Tobacco Risk Assessment: Denies Tobacco Use; Details: Tobacco Use: Never (less than 100 in lifetime). Physical Exam Vitals: Yxscfbsyesw65.9 (07:11) Systolic Blood Cyxjqstn438 (07:11) Diastolic Blood Hhgcepbg24 (07:11) Odoyc984 (07:11) AeV928 (07:11) Respiratory Rate18 (07:11) General: Alert, cooperative. _ The remainder of the physical exam is noncontributory. Labs Anticoagulation Labs No qualifying data available. Last Month Lipid Profile: Basic Metabolic Panel: Hematology: : () Sodium Level: 140 (09/29/22) Hgb: 13.8 (09/29/22) : () Potassium Level: 4.1 (09/29/22) : () : () Phosphorus: ------ WBC: 7.2 (09/29/22) LDL Cholesterol: 85 (09/29/22) Magnesium Lvl: ------ Platelet: 284 (09/29/22) BUN: 28 (09/29/22) PT International Ratio: ------ Creatinine Lvl (s): 1.52 (09/29/22) : () Additional - Last Month A/G Ratio: 1.2 (09/29/22) Albumin Level: 3.8 (09/29/22) Alk Phos: 121 (09/29/22) ALT/SGPT: 20 (09/29/22) AST/SGOT: 22 (09/29/22) Basophil %: 0.8 (09/29/22) Basophil, Absolute: 0.1 (09/29/22) Bili Total: 0.7 (09/29/22) BUN/Creatinine Ratio: 18 (09/29/22) Calcium Lvl: 9.4 (09/29/22) Chloride: 101 (09/29/22) Cholesterol: 156 (09/29/22) CO2: 31 (09/29/22) Electrolyte Balance: 8.0 (09/29/22) Eosinophil %: 7.3 (09/29/22) Eosinophil, Absolute: 0.5 (09/29/22) GFR : 41 (09/29/22) GFR Non-: 34 (09/29/22) Globulin: 3.1 (09/29/22) Glucose Level: 93 (09/29/22) Hct: 40.2 (09/29/22) HDL Cholesterol: 44 (09/29/22) Lymphocyte %: 15.5 (09/29/22) Lymphocyte, Absolute: 1.1 (09/29/22) MCH: 29.6 (09/29/22) MCHC: 34.3 (09/29/22) MCV: 86.2 (09/29/22) Monocyte %: 7.5 (09/29/22) Monocyte, Absolute: 0.5 (09/29/22) MPV: 8.5 (09/29/22) Neutrophil %: 68.9 (09/29/22) Neutrophil, Absolute: 5.0 (09/29/22) RBC: 4.66 (09/29/22) RDW: 13.4 (09/29/22) Total Protein: 6.9 (09/29/22) Triglycerides: 136 (09/29/22) Assessment/Treatment Plan Image guided left iliopsoas tendon injection Post Procedure Discharge Plan Patient to be discharged home. _ Left hip pain Future Appointments Appointment Date:11/02/2022 09:15:00 AM Scheduled Provider: Location:[facility] Appointment Type:PC Nurse Injection Appointment Date:11/06/2022 09:00:00 AM Scheduled Provider: Location:[facility] Appointment Type:US Breast Left Limited Appointment Date:03/27/2023 09:30:00 AM Scheduled Provider:CADEN KIMBALL Location:[facility] Appointment Type:PC OV Appointment Date:09/21/2023 08:30:00 AM Scheduled Provider: Location:[facility] Appointment Type:MA Mammogram Diagnostic Bilateral w/ Sharad Appointment Date:09/21/2023 09:00:00 AM Scheduled Provider: Location:[facility] Appointment Type:US Breast Bilateral Complete Appointment Date:10/01/2023 09:30:00 AM Scheduled Provider:ISABEL MARKS Location:[facility] Appointment Type:[facility] OV Follow Up Future Scheduled Tests Laboratory* Ferritin 10/04/23 * Complete Blood Count 10/04/23 * Iron Studies 10/04/23 * Complete Metabolic Panel 10/04/23 Radiology* MA Mammo Diagnostic Bilateral w/Scar 09/21/23 * US Breast Left Limited 11/06/22 * US Breast Bilateral Complete 09/21/23 [facility] 12-27-2022 Hospital Discharge instructions Patient Education 10/17/2022 08:21:37 Radiology- Procedure/Biopsy 02/04/2020(CUSTOM) [place] Rad[facility] Procedure/Biopsy Discharge Instructions Interventional Radiology [facility] [address] [place] [address] Today, you had a Left Iliopsoas tendon injection . This procedure/biopsy was done to help your doctor diagnose and treat the signs and symptoms you have been experiencing. These instructions should be followed after your procedure to reduce the chance of experiencing complications. Please follow the instructions below to reduce the chance of experiencing complications. Diet: Resume your normal diet as tolerated. Drink extra fluids. Activity: Rest for the remainder of the day. You may resume your normal activity tomorrow. You may bathe/shower after 24 hours. Do not soak or submerge site (including swimming or hot tubs) until a scab forms. No heavy lifting, pushing, or straining. Dressing: Check the site for bleeding. Apply pressure to the site if bleeding excessively and call your physician. Change the band aid as needed; it can be removed after 24 hours. Keep the site dry at all times until a scab forms over the site. Pain Control: The puncture site may be sore for 1 to 2 days following the procedure. Ovuj-gxb-xshgtee pain medication should be used for pain or discomfort. Please check with the physician who ordered this procedure for you for their specific recommendations. If your pain is not relieved or becomes more severe, notify the physician who sent you for this procedure. If you were sedated for this procedure: Avoid alcoholic beverages for 24 hours after your procedure. Do not drive or operate heavy machinery for 24 hours after your procedure. Do not make any legal decisions for 24 hours after your procedure. Medication: Please resume on . When to seek medical help: Lightheadedness, dizziness, or fainting. Severe pain or swelling. Severe nausea or vomiting. Infection: fever greater than 101 degrees, chills, redness, warmth, swelling, bleeding, or pus frompuncture site. If you experience any of these issues during the first 24 hours, please follow the instruction below: 8:00 am- 5:00 pm call [phone] After 5:00 pm call [phone] After 24 hours, contact the physician who ordered this procedure for you. Obtaining test results: Please make an appointment with your doctor to obtain your test results. They are usually availablewithin 4 to 7 business days. Do not assume everything is normal if you have not heard from your doctor or medical facility. It is important for you to follow up on all of your test results. Special Instructions: Follow Up Care 10/10/2022 13:46:40 With:Follow up with primary care provider Address:Unknown When: Unknown [facility] 12-27-2022 Note IR Procedure Record Summary Primary Physician: AYE BRUNO PA-C Finalized Date/Time: 10/17/22 08:33:21 Pt. Name: LORETA KRAMER /Sex: 1955 Female Med Rec #: [id number] Physician: Financial #: [id number] Pt. Type: O Room/Bed: / Admit/Disch: 10/17/22 06:59:00 - Institution: Allergies identified in patient's electronic medical record at time of printing on 10/17/22 Entry 1 Substance seasonal enviromental Reaction Type Allergy Last Modified By: Kristina Pedraza LPN 08/17/21 11:11:47 Case Attendance- IR Entry 1 Entry 2 Entry 3 Case Attendee AYE BRUNO Megan R Rad H[place], Rad Tech PA-C Tech Amanda K Role Performed Primary Surgeon Circulating Technologist Scrub Technologist Details Time In 10/17/22 08:09:00 10/17/22 08:09:00 10/17/22 08:09:00 Time Out 10/17/22 08:34:00 10/17/22 08:34:00 10/17/22 08:34:00 Procedure/Preference IR Aspiration or Inj IR Aspiration or Inj IR Aspiration or Inj Card Large Joints SN Large Joints SN Large Joints SN Last Modified By: Ngoc Pike RN, Caitlin C RN Ngoc Pike RN 10/17/22 08:30:52 10/17/22 08:30:52 10/17/22 08:30:52 Entry 4 Case Attendee Ngoc Pike RN Role Performed Outpatient Interviewing Clerk 1 Details Time In 10/17/22 08:09:00 Time Out 10/17/22 08:34:00 Procedure/Preference IR Aspiration or Inj Card Large Joints SN Last Modified By: Ngoc Pike RN 10/17/22 08:30:52 Radiology Procedures- IR Entry 1 Procedure/Preference IR Aspiration or Inj Actual Procedure IR ASPIRATION OR INJ Card Large Joints SN LARGE JOINTS SN Primary Procedure Yes Primary Surgeon AYE BRUNO PA-C Anesthesia/Sedation Local Type Additional Procedure Times Start 10/17/22 08:19:00 Stop 10/17/22 08:30:00 Specialty Service SN Radiology Procedure EBL 0 mL Last Modified By: Ngoc Pike RN 10/17/22 08:30:15 Radiology Procedure Details - IR Entry 1 Radiology Sedation Case Times Sedation Total Time 0 Radiology - Fluid/Drainage Radiology Contrast Contrast Used? Yes Dose 2 mL Medication OMNIPAQUE 300 50ML 10/CT Y-530 Radiology Flouroscopy Fluoroscopy Used? Yes Fluoro Dose (mGy) 41.48 Fluoro Time 0.7 min Radiology Local Local Used? Yes Local Type: lidocaine Local Dose 6cc Radiology Procedure Site Site/Location Left hip Site Condition No complications Dressing Type Bandaids Technologist Notes 6cc Marcaine 40mg Depomedrol 3cc lidocaine injected Last Modified By: Ngoc Pike RN 10/17/22 08:33:11 General Case Data - IR Entry 1 Case Information Room IR 17 Case Level IR Level 1 Wound Class None Specialty SN Radiology Procedure ASA Class None Diagnosis Preop Diagnosis pain in left hip Postop Same As Preop Yes Postop Diagnosis pain in left hip Last Modified By: Ngoc Pike RN 10/17/22 08:15:07 Procedure Case Times- IR Entry 1 Patient In Procedure Patient In OR 10/17/22 08:09:00 Patient Out of OR 10/17/22 08:34:00 Procedure Start/Stop Procedure Start Time 10/17/22 08:19:00 Procedure Stop Time 10/17/22 08:30:00 Last Modified By: Ngoc Pike RN 10/17/22 08:30:14 Immediate Post Procedure Note - IR Entry 1 Immediate Post Yes Findings Left iliopsoas injection Procedure Note displayed for Physician to review Closure Technique Closure Technique Other than Primary Last Modified By: Ngoc Pike RN 10/17/22 08:31:45 Immediate Post Procedure Note - IR Signed By: AYE BRUNO PA-C 10/17/22 08:31 Allergy Information- IR Entry 1 Allergies Reviewed? Yes Allergies Reviewed Patient With Last Modified By: Ngoc Pike RN 10/17/22 08:12:56 Radiology Protocols/Time Out- IR Entry 1 Preprocedure Clinician Verifies Correct patient ID When Clinically Confirmation of correct using name & date Indicated side(s) and site(s), or MRN, Accurate Correct diagnostic and procedure, complete radiology tests Informed Consent, H & P available, Required update immediately blood products, prior to procedure, if implants, devices applicable and/or special equipment available OR/Procedure Room/Bedside Time 10/17/22 08:19:00 Clinician Verifies Correct patient identity including EMR & records using name and date or medical record number, Accurate procedure consent form, Correct patient position, Necessary equipment is available, Anticipated non-routine events with surgical team (case duration, estimated blood loss, patient specific concerns)., [place] patient factors for recovery and management identified with surgical team. When Applicable Confirmation correct Team Members AYE BRUNO side and site marked, Present for Time Out JL, Tiffany Webber Relevant images and Natural Resources EngineerNoemi Rai Rad results are properly Tech Marina Garcia, labeled and Ngoc Pike RN appropriately displayed, Alcohol based prep dry, Double verification of sterility indicators complete Instrument Sterility Procedure IR Aspiration or Inj Large Joints SN Last Modified By: Ngoc Pike RN 10/17/22 08:20:22 Skin Prep- IR Entry 1 Procedure IR Aspiration or Inj Large Joints SN Skin Prep Prep Area Hip Side Left By Adithya Franklin Prep Agents Chloraprep Marina K Hair Removal Method N/A Last Modified By: Ngoc Pike RN 10/17/22 08:14:18 Patient Positioning- IR Entry 1 Procedure IR Aspiration or Inj Body Position OP Supine Large Joints SN Feet Uncrossed? Yes Pressure Points Yes Checked Last Modified By: Ngoc Pike RN 10/17/22 08:14:32 Radiology Procedure Plan - IR Entry 1 Radiology - Nursing Care Plan Outcome Statement The patient Outcome Statement The patient receives demonstrates knowledge Cont. appropriate of the expected medication(s), safely responses to the administered during the operative/invasive perioperative/invasive procedure., The period., The patient is patient's value system, free from signs and lifestyle, ethnicity, symptoms of injury and culture are caused by extraneous considered, respected, objects (equipment, and incorporated in the instrumentation, perioperative plan of sponges, or sharps)., care., The patient is The patient is free free from signs and from signs and symptoms symptoms of infection., of electrical injury. The patient is free from signs and symptoms of injury related to positioning. Radiology - Action Plan Outcomes Met? Yes Power Truck Driver Ngoc Pike RN Completing Procedure Plan Last Modified By: Ngoc Pike RN 10/17/22 08:14:52 Case Comments Finalized By: Ngoc Pike RN Document Signatures Signed By: Ngoc Pike RN 10/17/22 08:33 [id number] Summary of episode note Discharge Instructions Thank you for allowing [facility] to assist you with your healthcare needs. The following is importantdischarge information regarding your hospital visit. Your Care Team CADEN KIMBALL What to do next Scheduled Follow-Up Appointments Appointment Type When With Where Contact InformationPC Nurse Injection 11/02/2022 09:15 AM EST [address] [address] US Breast Left Limited 11/06/2022 09:00 AM EST Radiology PC OV 03/27/2023 09:30 AM EDT CADEN KIMBALL APRN-NUTRITION TECH [address] [id number] [place] Mammogram Diagnostic Bilateral w/ Sharad 09/21/2023 08:30 AM EST Radiology US Breast Bilateral Complete 09/21/2023 09:00 AM EST Radiology HEM ONC OV Follow Up 10/01/2023 09:30 AM EST ISABEL MARKS APRN-YOLA [facility] Follow Up Appointments Follow Up with Follow up with primary care provider When The Following Activity and Diet Have Been Ordered for You No qualifying data available. No qualifying data available. The Following Equipment Has Been Ordered for You No qualifying data available. The Following Treatments Have Been Ordered for You Discharge Labs No qualifying data available. Discharge Radiology No qualifying data available. Other Therapies No qualifying data available. Post Acute Orders No qualifying data available. Someone Will Contact You Regarding These Home Health Referrals No home referrals have been ordered for you. No one will call you. Allergies seasonal enviromental (typical) Medications Please ask your primary doctor or pharmacist before taking any other medication not listed, including over the counter drugs, herbal medications, vitamins and or supplements as they may interact withyour home medications. What How Much When Why Instructions Last Dose Unchanged apixaban (Eliquis 5 mg oral tablet) See instructions TAKE 1 TABLET BY MOUTH TWICE A DAY Unchanged aspirin (aspirin 81 mg oral delayed release tablet) 1 tab(s) by mouth Every day Unchanged atorvastatin (atorvastatin 20 mg oral tablet) 1 tab(s) by mouth Once a day Unchanged cholecalciferol (Vitamin D3 125 mcg (5000 intl units) oral tablet) 1 tab(s) by mouth Once a day Unchanged ferrous sulfate (ferrous sulfate 325 mg (65 mg elemental iron) oral delayed release tablet) 1 tab(s) by mouth Once a day Iron deficiency anemia Unchanged hydroCHLOROthiazide (hydroCHLOROthiazide 25 mg oral tablet) 1 tab(s) by mouth Once a day Hypertension Unchanged hydrochlorothiazide-quinapril (hydrochlorothiazide-quinapril 25 mg-20 mg oral tablet) 1 tab(s) by mouth Every day Unchanged meloxicam (meloxicam 15 mg oral tablet) See instructions 1 tab(s) Oral qDay Unchanged metoprolol (Metoprolol Succinate ER 100 mg oral TABLET extended release) See instructions TAKE 1 TABLET BY MOUTH TWICE A DAY Unchanged omeprazole (omeprazole 40 mg oral delayed release capsule) 1 cap by mouth Once a day GERD (gastroesophageal reflux disease) Unchanged quinapril (quinapril 20 mg oral tablet) 1 tab(s) by mouth Every day Hypertension Unchanged trospium (trospium 60 mg oral capsule, extended release) 1 cap by mouth Once a day (in the morning) Please take this list to your next doctor s visit. Bring all medications you take, including over the counter medications, herbals and other supplements with you to your doctor s visit. Patients and families are reminded to discard old lists and to update any records with all medication providers or retail pharmacies. Education Materials [place] Radiology Procedure/Biopsy Discharge Instructions Interventional Radiology [facility] [address] [address] Today, you had a Left Iliopsoas tendon injection . This procedure/biopsy was done to help your doctor diagnose and treat the signs and symptoms you have been experiencing. These instructions should be followed after your procedure to reduce the chance of experiencing complications. Please follow the instructions below to reduce the chance of experiencing complications. Diet: Resume your normal diet as tolerated. Drink extra fluids. Activity: Rest for the remainder of the day. You may resume your normal activity tomorrow. You may bathe/shower after 24 hours. Do not soak or submerge site (including swimming or hot tubs) until a scab forms. No heavy lifting, pushing, or straining. Dressing: Check the site for bleeding. Apply pressure to the site if bleeding excessively and call your physician. Change the band aid as needed; it can be removed after 24 hours. Keep the site dry at all times until a scab forms over the site. Pain Control: The puncture site may be sore for 1 to 2 days following the procedure. Cisk-lhy-lpgkppw pain medication should be used for pain or discomfort. Please check with the physician who ordered this procedure for you for their specific recommendations. If your pain is not relieved or becomes more severe, notify the physician who sent you for this procedure. If you were sedated for this procedure: Avoid alcoholic beverages for 24 hours after your procedure. Do not drive or operate heavy machinery for 24 hours after your procedure. Do not make any legal decisions for 24 hours after your procedure. Medication: Please resume on . When to seek medical help: Lightheadedness, dizziness, or fainting. Severe pain or swelling. Severe nausea or vomiting. Infection: fever greater than 101 degrees, chills, redness, warmth, swelling, bleeding, or pus frompuncture site. If you experience any of these issues during the first 24 hours, please follow the instruction below: 8:00 am- 5:00 pm call [phone] After 5:00 pm call [phone] After 24 hours, contact the physician who ordered this procedure for you. Obtaining test results: Please make an appointment with your doctor to obtain your test results. They are usually availablewithin 4 to 7 business days. Do not assume everything is normal if you have not heard from your doctor or medical facility. It is important for you to follow up on all of your test results. Special Instructions: Additional Information VACCINATE! IT SAVES LIVES! Members of the community who have not yet received the COVID-19 vaccine and would like to receive it can visit one of [facility] vaccine clinics. There are many vaccine clinic locations within the [facility] [address] [facility]. For locations and available times, please visit [email or web address] It is important to note that some COVID mobile vaccine clinics are held outdoors and may be canceled in rainy or stormy conditions. To learn more about pediatric vaccinations (ages 5-11), we invite you to visit the [facility] webpage. [email or web address] learn more about the COVID-19 vaccine, we invite you to visit the [facility] website for a list of frequently asked questions. [email or web address] [facility] Patient Portal Access Instructions: Stay connected with your healthcare team and access your personal medical information anytime with the [facility] Patient Portal.If you would like a full copy of your medical records, please contact the [facility] Medical Records Department, Sunday through Sunday between 8a.m. and 4:30p.m. Please follow the directions below to access the portal: 1.Access the email account you provided upon registration to the [facility].2.Look for an invitation email from [facility].3.Open the email and access the invitation link: Accept Invitation to [facility]4.Fill in the required agarwal to create your account. Sign into [email or web address] with your username and password that you created in the above steps to stay up to date. You can then view a summary of results, a summary of your visits, and the ability to download your summaries to your computer or send the information securely to a physician. Remember that your healthcare information is confidential, so carefully consider who you will allow to register on the [facility] Patient Portal for access to your information. You can also access the [facility] [facility] Patient Portal on the [employer]. Simply click on Health Records under [employer] and then click on the [employer] logo. HOW TO SAFELY DISPOSE OF PRESCRIPTION MEDICATIONS Please use one of the following methods to safely dispose of your unused medications. 1.Use a drug disposal kit: the drug disposal pouch allows you to safely discard your old and unuseddrugs. Ask your nurse to give you one when you are discharged.2.Visit a local take-back location: Many local pharmacies and police departments have programs that collect old and unwanted prescriptiondrugs. Call your local pharmacy or go to http://bit.ly/0C1Pz9d to find one close to you.3.Make use of household items: Use cat litter or old coffee grounds to dispose medications if other options arenot available. Mix your drugs with these household products, seal them in an airtight container andthrow it into the garbage. Call [facility]: [phone] to be sure your drugs can be disposed of in this way. Some medicines may require a different approach.4.Never flush your medications down the toilet. IF YOU HAVE BEEN PRESCRIBED AN OPIOID FOR PAIN If you have been prescribed an opioid (such as hydrocodone, oxycodone or morphine), it is critical to understand the possible side effects and risks of opioid pain medications. Even when taken as directed, opioids can have several side effects including: Tolerance, meaning you might need to take more of a medication for the same pain relief. Nausea, vomiting and/or constipation. Sleepiness, dizziness, dry mouth, confusion, depression or itching. Physical dependence, meaning you have withdrawal symptoms when a medication is stopped, can develop within a few days. KNOW YOUR RESPONSIBILITIES It is important to know exactly how much and how often to take the opioid pain medications you are prescribed. Never take opioids in higher amounts or more often than prescribed. Do not combine opioids with alcohol or other drugs that cause drowsiness, such as benzodiazepines, also known as benzos, including diazepam and alprazolam, muscle relaxants or sleep aids. Never sell or share prescription opioids. This is illegal. Store opioids in a secure place and out of reach of others (including children, family, friends and visitors). The last page of this document has been signed and retained as a CHART COPY. Signatures Patient Education Materials Radiology- Procedure/Biopsy 02/04/2020(CUSTOM) Medication Leaflets My discharge plan and instructions have been reviewed and explained to me and I,CORINNE KRAMER understand my current condition and have read and understand these discharge instructions. I havereceived a written copy of the plan/instructions. If I have questions, I am aware that I should contact my doctor. Patient/Basic Acoustic Analyst Signature: Date/Time: Relationship to Patient: Witness Name/Signature: Date/Time: [id number] Note Interventional Radiology Focused Preprocedure History/Physical Reason for Visit PAIN IN LEFT HIP History of Presenting Illness/Planned IR Procedure Left hip pain. Hip replacement approximately 6-7 years ago. Patient had iliopsoas tendon injection on 02/16/2022 and states that it was very helpful. patient is on Eliquis and last dose was this morning. Allergies (1) ActiveReaction seasonal enviromentaltypical Home Medications (12) Active aspirin 81 mg oral delayed release tablet 81 mg = 1 tab(s), Oral, Daily atorvastatin 20 mg oral tablet 20 mg = 1 tab(s), Oral, qDay Eliquis 5 mg oral tablet See Instructions ferrous sulfate 325 mg (65 mg elemental iron) oral delayed release tablet 325 mg = 1 tab(s), Oral, qDay hydroCHLOROthiazide 25 mg oral tablet 25 mg = 1 tab(s), Oral, qDay hydrochlorothiazide-quinapril 25 mg-20 mg oral tablet 1 tab(s), Oral, Daily meloxicam 15 mg oral tablet See Instructions Metoprolol Succinate ER 100 mg oral TABLET extended release See Instructions omeprazole 40 mg oral delayed release capsule 40 mg = 1 cap(s), Oral, qDay quinapril 20 mg oral tablet 20 mg = 1 tab(s), Oral, Daily trospium 60 mg oral capsule, extended release 60 mg = 1 cap(s), Oral, qAM Vitamin D3 125 mcg (5000 intl units) oral tablet 125 mcg = 1 tab(s), Oral, qDay Problem List/Past Medical History BREAST CANCER SVT (Renamed from CORONARY SINUS RHYTHM DISORDER) Umbilical hernia ARTHRITIS (Renamed from ARTHRITIS OR POLYARTHRITIS, RHEUMATOID) ATRIAL FIBRILLATION (Renamed from A-FIB) B12 deficiency CAD (CORONARY ARTERY DISEASE) CARDIOMYOPATHY COLON CANCER Encounter for screening colonoscopy Glasses 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 Surgical History Mammogram: 09/2021 Cardiac catheterization procedure: 10/01/18 Mammogram: 06/11/17 Sclerotherapy: 05/2017 Bone density scan: 05/29/17 Colonoscopy: 01/2017 Colonoscopic polypectomy: 02/01/17 Radiation: 08/2014 Biopsy of breast: 06/04/14 Lumpectomy, L: 12/2013 Cataract extraction, L: 2010 Knee replacement: 2010 Arthroscopy of knee with meniscus repair: 2005 Colonoscopy Chemotherapy Hysterectomy Total hip replacement Arthroplasty of the knee Colonoscopy (procedure) Family History Mother: Arthritis; Heart attack; Heart disease; Hypertension Father: Malignant neoplasm of brain Brother: Alcohol abuse; Cancer; Hypertension Sister: Hypertension; Malignant tumor of kidney Social History Alcohol Risk Assessment: Denies Alcohol Use; Details: Type: Wine. Frequency: 1-2 times per year. Employment/School Details: Status: Employed. 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 Nutrition/Health Details: Type of diet: Regular. Appetite Excellent. Eating Difficulties None. Details: Caffeine intake amount: Decaf coffee. Substance Abuse Risk Assessment: Denies Substance Abuse; Details: Use: Never. Tobacco Risk Assessment: Denies Tobacco Use; Details: Tobacco Use: Never (less than 100 in lifetime). Physical Exam Vitals: Plqzsavouyj97.9 (07:11) Systolic Blood Norcoiwn297 (07:11) Diastolic Blood Qefgntuu98 (07:11) Owqts675 (07:11) MuM489 (07:11) Respiratory Rate18 (07:11) General: Alert, cooperative. _ The remainder of the physical exam is noncontributory. Labs Anticoagulation Labs No qualifying data available. Last Month Lipid Profile: Basic Metabolic Panel: Hematology: : () Sodium Level: 140 (09/29/22) Hgb: 13.8 (09/29/22) : () Potassium Level: 4.1 (09/29/22) : () : () Phosphorus: ------ WBC: 7.2 (09/29/22) LDL Cholesterol: 85 (09/29/22) Magnesium Lvl: ------ Platelet: 284 (09/29/22) BUN: 28 (09/29/22) PT International Ratio: ------ Creatinine Lvl (s): 1.52 (09/29/22) : () Additional - Last Month A/G Ratio: 1.2 (09/29/22) Albumin Level: 3.8 (09/29/22) Alk Phos: 121 (09/29/22) ALT/SGPT: 20 (09/29/22) AST/SGOT: 22 (09/29/22) Basophil %: 0.8 (09/29/22) Basophil, Absolute: 0.1 (09/29/22) Bili Total: 0.7 (09/29/22) BUN/Creatinine Ratio: 18 (09/29/22) Calcium Lvl: 9.4 (09/29/22) Chloride: 101 (09/29/22) Cholesterol: 156 (09/29/22) CO2: 31 (09/29/22) Electrolyte Balance: 8.0 (09/29/22) Eosinophil %: 7.3 (09/29/22) Eosinophil, Absolute: 0.5 (09/29/22) GFR : 41 (09/29/22) GFR Non-: 34 (09/29/22) Globulin: 3.1 (09/29/22) Glucose Level: 93 (09/29/22) Hct: 40.2 (09/29/22) HDL Cholesterol: 44 (09/29/22) Lymphocyte %: 15.5 (09/29/22) Lymphocyte, Absolute: 1.1 (09/29/22) MCH: 29.6 (09/29/22) MCHC: 34.3 (09/29/22) MCV: 86.2 (09/29/22) Monocyte %: 7.5 (09/29/22) Monocyte, Absolute: 0.5 (09/29/22) MPV: 8.5 (09/29/22) Neutrophil %: 68.9 (09/29/22) Neutrophil, Absolute: 5.0 (09/29/22) RBC: 4.66 (09/29/22) RDW: 13.4 (09/29/22) Total Protein: 6.9 (09/29/22) Triglycerides: 136 (09/29/22) Assessment/Treatment Plan Image guided left iliopsoas tendon injection Post Procedure Discharge Plan Patient to be discharged home. _ Left hip pain Digitally Signed by ALEXA ARAUJO PA-C on 10/17/2022 07:41 AM Digitally Signed by GUERDA HURTADO MD on 10/17/2022 08:47 AM [id number] [facility] Discharge instructions Patient Education 04/07/2022 14:22:31 Nausea and Vomiting, Adult Nausea and Vomiting, Adult Nausea is the feeling that you have an upset stomach or that you are about to vomit. Vomiting is when stomach contents are thrown up and out of the mouth as a result of nausea. Vomiting can make you feel weak and cause you to become dehydrated. Dehydration can make you feel tired and thirsty, cause you to have a dry mouth, and decrease how often you urinate. Older adults and people with other diseases or a weak disease-fighting system (immune system) are at higher risk for dehydration. It is important to treat your nausea and vomiting as told by your health care provider. Follow these instructions at home: Watch your symptoms for any changes. Tell your health care provider about them. Follow these instructions to care for yourself at home. Eating and drinking Take an oral rehydration solution (ORS). This is a drink that is sold at pharmacies and retail stores. Drink clear fluids slowly and in small amounts as you are able. Clear fluids include water, ice chips, low-calorie sports drinks, and fruit juice that has water added (diluted fruit juice). Eat bland, elyw-vr-ksnvxf foods in small amounts as you are able. These foods include bananas, applesauce, rice, lean meats, toast, and crackers. Avoid fluids that contain a lot of sugar or caffeine, such as energy drinks, sports drinks, and soda. Avoid alcohol. Avoid spicy or fatty foods. General instructions Take ubbn-iwx-korvppy and prescription medicines only as told by your health care provider. Drink enough fluid to keep your urine pale yellow. Wash your hands often using soap and water. If soap and water are not available, use hand neckties painter. Make sure that all people in your household wash their hands well and often. Rest at home while you recover. Watch your condition for any changes. Breathe slowly and deeply when you feel nauseated. Keep all follow-up visits as told by your health care provider. This is important. Contact a health care provider if: Your symptoms get worse. You have new symptoms. You have a fever. You cannot drink fluids without vomiting. Your nausea does not go away after 2 days. You feel light-headed or dizzy. You have a headache. You have muscle cramps. You have a rash. You have pain while urinating. Get help right away if: You have pain in your chest, neck, arm, or jaw. You feel extremely weak or you faint. You have persistent vomiting. You have vomit that is bright red or looks like black coffee grounds. You have bloody or black stools or stools that look like tar. You have a severe headache, a stiff neck, or both. You have severe pain, cramping, or bloating in your abdomen. You have difficulty breathing, or you are breathing very quickly. Your heart is beating very quickly. Your skin feels cold and clammy. You feel confused. You have signs of dehydration, such as: ?Dark urine, very little urine, or no urine. ?Cracked lips. ?Dry mouth. ?Sunken eyes. ?Sleepiness. ?Weakness. These symptoms may represent a serious problem that is an emergency. Do not wait to see if the symptoms will go away. Get medical help right away. Call your local emergency services (911 in the [place] Do not drive yourself to the hospital. Summary Nausea is the feeling that you have an upset stomach or that you are about to vomit. As nausea getsworse, it can lead to vomiting. Vomiting can make you feel weak and cause you to become dehydrated. Follow instructions from your health care provider about eating and drinking to prevent dehydration. Take bmyn-qrz-nwugldk and prescription medicines only as told by your health care provider. Contact your health care provider if your symptoms get worse, or you have new symptoms. Keep all follow-up visits as told by your health care provider. This is important. This information is not intended to replace advice given to you by your health care provider. Make sure you discuss any questions you have with your health care provider. Document Released: 10/08/2006 Document Revised: 01/30/2020 Document Reviewed: 03/18/2019 [employer] Patient Education 2020 [employer]. 04/07/2022 14:22:13 Moderate Conscious Sedation, Adult, Care After Moderate Conscious Sedation, Adult, Care After These instructions provide you with information about caring for yourself after your procedure. Your health care provider may also give you more specific instructions. Your treatment has been plannedaccording to current medical practices, but problems sometimes occur. Call your health care provider if you have any problems or questions after your procedure. What can I expect after the procedure? After your procedure, it is common: To feel sleepy for several hours. To feel clumsy and have poor balance for several hours. To have poor judgment for several hours. To vomit if you eat too soon. Follow these instructions at home: For at least 24 hours after the procedure: Do not: ?Participate in activities where you could fall or become injured. ?Drive. ?Use heavy machinery. ?Drink alcohol. ?Take sleeping pills or medicines that cause drowsiness. ?Make important decisions or sign legal documents. ?Take care of children on your own. Rest. Eating and drinking Follow the diet recommended by your health care provider. If you vomit: ?Drink water, juice, or soup when you can drink without vomiting. ?Make sure you have little or no nausea before eating solid foods. General instructions Have a responsible adult stay with you until you are awake and alert. Take tunw-bqv-riqujpk and prescription medicines only as told by your health care provider. If you smoke, do not smoke without supervision. Keep all follow-up visits as told by your health care provider. This is important. Contact a health care provider if: You keep feeling nauseous or you keep vomiting. You feel light-headed. You develop a rash. You have a fever. Get help right away if: You have trouble breathing. This information is not intended to replace advice given to you by your health care provider. Make sure you discuss any questions you have with your health care provider. Document Released: 07/29/2014 Document Revised: 09/20/2018 Document Reviewed: 01/27/2017 [employer] Patient Education 2020 [employer] 04/07/2022 14:22:03 Colonoscopy, Adult, Care After Colonoscopy, Adult, Care After This sheet gives you information about how to care for yourself after your procedure. Your health care provider may also give you more specific instructions. If you have problems or questions, contact your health care provider. What can I expect after the procedure? After the procedure, it is common to have: A small amount of blood in your stool for 24 hours after the procedure. Some gas. Mild abdominal cramping or bloating. Follow these instructions at home: General instructions For the first 24 hours after the procedure: ?Do not drive or use machinery. ?Do not sign important documents. ?Do not drink alcohol. ?Do your regular daily activities at a slower pace than normal. ?Eat soft, ozug-ii-tfzvgw foods. Take qllq-fmt-ejkqjkm or prescription medicines only as told by your health care provider. Relieving cramping and bloating Try walking around when you have cramps or feel bloated. Apply heat to your abdomen as told by your health care provider. Use a heat source that your healthcare provider recommends, such as a moist heat pack or a heating pad. ?Place a towel between your skin and the heat source. ?Leave the heat on for 20 30 minutes. ?Remove the heat if your skin turns bright red. This is especially important if you are unable to feel pain, heat, or cold. You may have a greater risk of getting burned. Eating and drinking Drink enough fluid to keep your urine pale yellow. Resume your normal diet as instructed by your health care provider. Avoid heavy or fried foods thatare hard to digest. Avoid drinking alcohol for as long as instructed by your health care provider. Contact a health care provider if: You have blood in your stool 2 3 days after the procedure. Get help right away if: You have more than a small spotting of blood in your stool. You pass large blood clots in your stool. Your abdomen is swollen. You have nausea or vomiting. You have a fever. You have increasing abdominal pain that is not relieved with medicine. Summary After the procedure, it is common to have a small amount of blood in your stool. You may also have mild abdominal cramping and bloating. For the first 24 hours after the procedure, do not drive or use machinery, sign important documents, or drink alcohol. Contact your health care provider if you have a lot of blood in your stool, nausea or vomiting, a fever, or increased abdominal pain. This information is not intended to replace advice given to you by your health care provider. Make sure you discuss any questions you have with your health care provider. Document Released: 05/22/2005 Document Revised: 07/31/2018 Document Reviewed: 12/19/2016 [employer] Patient Education 2020 [employer]. Follow Up Care 02/10/2022 10:12:41 With:MICKEY SARAVIA MD, Surgery Address: [address] [place] [address] [place] [address]- [phone] When: only if needed Comments:CALL OFFICE TO SCHEDULE APPOINTMENT IN 2 WEEKS. [facility] 06-02-2022 Evaluation + Plan note Future Appointments Appointment Date:04/12/2022 09:30:00 AM Scheduled Provider: Location:[facility] Appointment Type:PC Nurse Injection Appointment Date:04/12/2022 09:45:00 AM Scheduled Provider: Location:[facility] Appointment Type:COVID AMB VACCINE Appointment Date:04/17/2022 01:30:00 PM Scheduled Provider:MICKEY SARAVIA MD Location:[facility] Appointment Type:GS OV Follow Up Appointment Date:09/25/2022 12:00:00 PM Scheduled Provider: Location:[facility] Appointment Type:MA Mammogram Screening Bilateral w/ Scar Appointment Date:10/04/2022 02:00:00 PM Scheduled Provider:EVER DALLAS MD Location:[facility] Appointment Type:[facility] OV Follow Up Future Scheduled Tests Laboratory* Complete Blood Count 09/28/21 * Complete Blood Count 07/14/21 * Lipid Profile 07/14/21 * Complete Metabolic Panel 09/28/21 * Complete Metabolic Panel 07/14/21 Radiology* MA Mammo Screening Bilateral w/ Scar 09/25/22 * US Breast Left Complete 09/28/21 [facility] 04-28-2022 Evaluation + Plan noteExtracted from: Title:IR pre procedure H&P Author:YONNY ARAUJO PA-C Date:02/16/22 IR PREPROCEDURE H&P UPDATE IF A HISTORY AND PHYSICAL EXAMINATION HAS BEEN COMPLETED PRIOR TO ADMISSION TO THE HOSPITAL, AN UPDATED EXAMINATION MUST BE COMPLETED AND DOCUMENTED WITHIN 24 HOURS AFTER ADMISSION OR REGISTRATION BUT BEFORE A SURGICAL PROCEDURE. I have examined the patient, reviewed the H&P, and there are no changes unless noted below: Last dose of Eliquis and 81 mg aspirin was this morning. The most recent H&P/Office Note has been performed on 01/28/2022 and can be found on paper, which has been scanned into the [place] PACS/RIS system. _ Future Appointments Appointment Date:03/14/2022 09:30:00 AM Scheduled Provider: Location:[facility] Appointment Type:PC Nurse Injection Appointment Date:04/11/2022 09:00:00 AM Scheduled Provider: Location:[facility] Appointment Type:US Breast Left Complete Appointment Date:09/25/2022 12:00:00 PM Scheduled Provider: Location:[facility] Appointment Type:MA Mammogram Screening Bilateral w/ Scar Appointment Date:10/04/2022 02:00:00 PM Scheduled Provider:EVER DALLAS MD Location:[facility] Appointment Type:[facility] OV Follow Up Future Scheduled Tests Laboratory* Complete Blood Count 09/28/21 * Complete Blood Count 07/14/21 * Lipid Profile 07/14/21 * Complete Metabolic Panel 09/28/21 * Complete Metabolic Panel 07/14/21 Radiology* MA Mammo Screening Bilateral w/ Scar 09/25/22 * US Breast Left Complete 09/28/21 * US Breast Left Complete 04/11/22 [facility] 04-28-2022 Hospital Discharge instructions Patient Education 02/16/2022 10:31:14 Radiology- Procedure/Biopsy 02/04/2020 (CUSTOM) [place] Radiology Procedure/Biopsy Discharge Instructions Interventional Radiology [facility] [address] [place] [address] Today, you had a . This procedure/biopsy was done to help your doctor diagnose and treat the signs and symptoms you have been experiencing. These instructions should be followed after your procedure to reduce the chance of experiencing complications. Please follow the instructions below to reduce the chance of experiencing complications. Diet: Resume your normal diet as tolerated. Drink extra fluids. Activity: Rest for the remainder of the day. You may resume your normal activity tomorrow. You may bathe/shower after 24 hours. Do not soak or submerge site (including swimming or hot tubs) until a scab forms. No heavy lifting, pushing, or straining. Dressing: Check the site for bleeding. Apply pressure to the site if bleeding excessively and call your physician. Change the band aid as needed; it can be removed after 24 hours. Keep the site dry at all times until a scab forms over the site. Pain Control: The puncture site may be sore for 1 to 2 days following the procedure. Cveb-mku-rrhazax pain medication should be used for pain or discomfort. Please check with the physician who ordered this procedure for you for their specific recommendations. If your pain is not relieved or becomes more severe, notify the physician who sent you for this procedure. If you were sedated for this procedure: Avoid alcoholic beverages for 24 hours after your procedure. Do not drive or operate heavy machinery for 24 hours after your procedure. Do not make any legal decisions for 24 hours after your procedure. Medication: Please resume on . When to seek medical help: Lightheadedness, dizziness, or fainting. Severe pain or swelling. Severe nausea or vomiting. Infection: fever greater than 101 degrees, chills, redness, warmth, swelling, bleeding, or pus frompuncture site. If you experience any of these issues during the first 24 hours, please follow the instruction below: 8:00 am- 5:00 pm call [phone] After 5:00 pm call [phone] After 24 hours, contact the physician who ordered this procedure for you. Obtaining test results: Please make an appointment with your doctor to obtain your test results. They are usually availablewithin 4 to 7 business days. Do not assume everything is normal if you have not heard from your doctor or medical facility. It is important for you to follow up on all of your test results. Special Instructions: Follow Up Care 02/09/2022 14:01:06 With:Follow up with primary care provider Address:Unknown When: Unknown [facility] Evaluation + Plan note Future Appointments Appointment Date:08/17/2021 11:00:00 AM Scheduled Provider:CADEN KIMBALL Location:[facility] Appointment Type:PC Wellness Medicare Appointment Date:09/21/2021 09:00:00 AM Scheduled Provider: Location:[facility] Appointment Type:MA Mammogram Screening Bilateral w/ Scar Appointment Date:12/13/2021 11:00:00 AM Scheduled Provider:SENA COURTNEY MD Location:[facility] Appointment Type:PC OV Follow Up Future Scheduled Tests Laboratory* Complete Blood Count 07/14/21 * Lipid Profile 07/14/21 * Complete Metabolic Panel 07/14/21 Radiology* MA Mammo Screening Bilateral w/ Scar 09/21/21 [facility] Evaluation + Plan note Future Appointments Appointment Date:08/25/2021 01:00:00 PM Scheduled Provider: Location:[facility] Appointment Type:COVID AMB VACCINE Appointment Date:09/21/2021 09:00:00 AM Scheduled Provider: Location:[facility] Appointment Type:MA Mammogram Screening Bilateral w/ Scar Appointment Date:09/28/2021 01:15:00 PM Scheduled Provider:EVER DALLAS MD Location:[facility] Appointment Type:[facility] OV Follow Up Appointment Date:12/13/2021 11:00:00 AM Scheduled Provider:SENA COURTNEY MD Location:[facility] Appointment Type:PC OV Follow Up Future Scheduled Tests Laboratory* Complete Blood Count 07/14/21 * Lipid Profile 07/14/21 * Complete Metabolic Panel 07/14/21 Radiology* MA Mammo Screening Bilateral w/ Scar 09/21/21 [facility] Evaluation + Plan note Future Appointments Appointment Date:09/23/2021 11:30:00 AM Scheduled Provider: Location:[facility] Appointment Type:MA Mammogram Screening Bilateral w/ Scar Appointment Date:09/28/2021 01:15:00 PM Scheduled Provider:EVER DALLAS MD Location:[facility] Appointment Type:[facility]M ONC OV Follow Up Appointment Date:12/13/2021 11:00:00 AM Scheduled Provider:SENA COURTNEY MD Location:[facility] Appointment Type:PC OV Follow Up Future Scheduled Tests Laboratory* Complete Blood Count 07/14/21 * Lipid Profile 07/14/21 * Complete Metabolic Panel 07/14/21 Radiology* MA Mammo Screening Bilateral w/ Scar 09/23/21 [facility] Evaluation + Plan note Future Appointments Appointment Date:09/28/2021 01:15:00 PM Scheduled Provider:EVER DALLAS MD Location:[facility] Appointment Type:HEM ONC OV Follow Up Appointment Date:12/13/2021 11:00:00 AM Scheduled Provider:SENA COURTNEY MD Location:[facility] Appointment Type:PC OV Follow Up Future Scheduled Tests Laboratory* Complete Blood Count 07/14/21 * Lipid Profile 07/14/21 * Complete Metabolic Panel 07/14/21 [facility] Evaluation + Plan note Future Appointments Appointment Date:12/13/2021 11:00:00 AM Scheduled Provider:SENA COURTNEY MD Location:[facility] Appointment Type:PC OV Follow Up Appointment Date:09/25/2022 12:00:00 PM Scheduled Provider: Location:[facility] Appointment Type:MA Mammogram Screening Bilateral w/ Scar Appointment Date:10/04/2022 02:00:00 PM Scheduled Provider:EVER DALLAS MD Location:[facility] Appointment Type:[facility]M ONC OV Follow Up Future Scheduled Tests Laboratory* Complete Blood Count 09/28/21 * Complete Blood Count 07/14/21 * Lipid Profile 07/14/21 * Complete Metabolic Panel 09/28/21 * Complete Metabolic Panel 07/14/21 Radiology* US Breast Left Complete 09/28/21 * MA Mammo Screening Bilateral w/ Scar 09/25/22 [facility] Evaluation + Plan note Future Appointments Appointment Date:12/13/2021 11:00:00 AM Scheduled Provider:SENA COURTNEY MD Location:[facility] Appointment Type:PC OV Follow Up Appointment Date:04/11/2022 09:00:00 AM Scheduled Provider: Location:[facility] Appointment Type:US Breast Left Complete Appointment Date:09/25/2022 12:00:00 PM Scheduled Provider: Location:[facility] Appointment Type:MA Mammogram Screening Bilateral w/ Scar Appointment Date:10/04/2022 02:00:00 PM Scheduled Provider:EVER DALLAS MD Location:[facility] Appointment Type:[facility]M ONC OV Follow Up Diagnostic Tests Pending * MICHAEL (serum) 10/26/21 * Methylmalonic Acid 10/26/21 Future Scheduled Tests Laboratory* Complete Blood Count 09/28/21 * Complete Blood Count 07/14/21 * Lipid Profile 07/14/21 * Complete Metabolic Panel 09/28/21 * Complete Metabolic Panel 07/14/21 Radiology* US Breast Left Complete 09/28/21 * US Breast Left Complete 04/11/22 * MA Mammo Screening Bilateral w/ Scar 09/25/22 [facility] Evaluation + Plan note Future Appointments Appointment Date:02/14/2022 09:30:00 AM Scheduled Provider: Location:[facility] Appointment Type:PC Nurse Injection Appointment Date:04/11/2022 09:00:00 AM Scheduled Provider: Location:[facility] Appointment Type:US Breast Left Complete Appointment Date:09/25/2022 12:00:00 PM Scheduled Provider: Location:[facility] Appointment Type:MA Mammogram Screening Bilateral w/ Scar Appointment Date:10/04/2022 02:00:00 PM Scheduled Provider:EVER DALLAS MD Location:[facility] Appointment Type:[facility]M ONC OV Follow Up Future Scheduled Tests Laboratory* Complete Blood Count 09/28/21 * Complete Blood Count 07/14/21 * Lipid Profile 07/14/21 * Complete Metabolic Panel 09/28/21 * Complete Metabolic Panel 07/14/21 Radiology* MA Mammo Screening Bilateral w/ Scar 09/25/22 * US Breast Left Complete 09/28/21 * US Breast Left Complete 04/11/22 [facility] Evaluation + Plan note Future Appointments Appointment Date:04/11/2022 09:00:00 AM Scheduled Provider: Location:[facility] Appointment Type:US Breast Left Complete Appointment Date:04/12/2022 09:30:00 AM Scheduled Provider: Location:[facility] Appointment Type:PC Nurse Injection Appointment Date:04/12/2022 09:45:00 AM Scheduled Provider: Location:[facility] Appointment Type:COVID AMB VACCINE Appointment Date:09/25/2022 12:00:00 PM Scheduled Provider: Location:[facility] Appointment Type:MA Mammogram Screening Bilateral w/ Scar Appointment Date:10/04/2022 02:00:00 PM Scheduled Provider:EVER DALLAS MD Location:[facility] Appointment Type:[facility] ON[facility] OV Follow Up Future Scheduled Tests Laboratory* Complete Blood Count 09/28/21 * Complete Blood Count 07/14/21 * Lipid Profile 07/14/21 * Complete Metabolic Panel 09/28/21 * Complete Metabolic Panel 07/14/21 Radiology* MA Mammo Screening Bilateral w/ Scar 09/25/22 * US Breast Left Complete 09/28/21 * US Breast Left Complete 04/11/22 [facility] Evaluation + Plan note Future Appointments Appointment Date:09/26/2022 09:30:00 AM Scheduled Provider:CADEN KIMBALL Location:[facility] Appointment Type:PC Wellness Medicare Appointment Date:10/04/2022 02:30:00 PM Scheduled Provider:MIGUELINA KAUR Location:[facility] Appointment Type:HEM ONC OV Follow Up Appointment Date:10/05/2022 09:15:00 AM Scheduled Provider: Location:[facility] Appointment Type:PC Nurse Injection Appointment Date:10/06/2022 09:15:00 AM Scheduled Provider:MICKEY SARAVIA MD Location:[facility] Appointment Type:GS OV Check after Mammogram Future Scheduled Tests Laboratory* Complete Blood Count 09/28/21 * Complete Metabolic Panel 09/28/21 Radiology* US Breast Left Complete 09/28/21 [facility] Evaluation + Plan note Future Appointments Appointment Date:10/04/2022 02:30:00 PM Scheduled Provider:MIGUELINA KAUR Location:[facility] Appointment Type:HEM ONC OV Follow Up Appointment Date:10/05/2022 09:15:00 AM Scheduled Provider: Location:[facility] Appointment Type:PC Nurse Injection Appointment Date:10/06/2022 09:15:00 AM Scheduled Provider:MICKEY SARAVIA MD Location:[facility] Appointment Type:GS OV Check after Mammogram Appointment Date:11/06/2022 09:00:00 AM Scheduled Provider: Location:[facility] Appointment Type:US Breast Left Limited Appointment Date:03/27/2023 09:30:00 AM Scheduled Provider:CADEN KIMBALL Location:[facility] Appointment Type:PC OV Future Scheduled Tests Radiology* US Breast Left Limited 11/06/22 [facility] Evaluation + Plan note Future Appointments Appointment Date:11/30/2022 09:15:00 AM Scheduled Provider: Location:[facility] Appointment Type:PC Nurse Injection Appointment Date:03/27/2023 09:30:00 AM Scheduled Provider:CADEN KIMBALL Location:[facility] Appointment Type:PC OV Appointment Date:09/21/2023 08:30:00 AM Scheduled Provider: Location:[facility] Appointment Type:MA Mammogram Diagnostic Bilateral w/ Sharad Appointment Date:09/21/2023 09:00:00 AM Scheduled Provider: Location:[facility] Appointment Type:US Breast Bilateral Complete Appointment Date:10/01/2023 09:30:00 AM Scheduled Provider:ISABEL MARKS Location:[facility] Appointment Type:[facility] OV Follow Up Future Scheduled Tests Laboratory* Ferritin 10/04/23 * Complete Blood Count 10/04/23 * Iron Studies 10/04/23 * Complete Metabolic Panel 10/04/23 Radiology* MA Mammo Diagnostic Bilateral w/Scar 09/21/23 * US Breast Bilateral Complete 09/21/23 [facility] Evaluation + Plan note Future Appointments Appointment Date:06/26/2023 09:45:00 AM Scheduled Provider: Location:[facility] Appointment Type:PC Nurse Injection Appointment Date:09/21/2023 08:30:00 AM Scheduled Provider: Location:[facility] Appointment Type:MA Mammogram Diagnostic Bilateral w/ Sharad Appointment Date:09/21/2023 09:00:00 AM Scheduled Provider: Location:[facility] Appointment Type:US Breast Bilateral Complete Appointment Date:09/28/2023 10:30:00 AM Scheduled Provider:CADEN KIMBALL Location:[facility] Appointment Type: Wellness Medicare Appointment Date:10/01/2023 09:30:00 AM Scheduled Provider:ISABEL MARKS Location:[facility] Appointment Type:[facility]M ONC OV Follow Up Future Scheduled Tests Laboratory* Basic Metabolic Panel 03/27/23 * Ferritin 10/04/23 * Complete Blood Count 10/04/23 * Iron Studies 10/04/23 * Complete Metabolic Panel 10/04/23 Radiology* MA Mammo Diagnostic Bilateral w/Scar 09/21/23 * BD Bone Density DEXA Axial Skeleton 09/26/23 [facility] Evaluation + Plan note Future Appointments Appointment Date:07/27/2023 09:45:00 AM Scheduled Provider: Location:[facility] Appointment Type:PC Nurse Injection Appointment Date:09/21/2023 08:30:00 AM Scheduled Provider: Location:[facility] Appointment Type:MA Mammogram Diagnostic Bilateral w/ Sharad Appointment Date:09/21/2023 09:00:00 AM Scheduled Provider: Location:[facility] Appointment Type:US Breast Bilateral Complete Appointment Date:09/28/2023 10:30:00 AM Scheduled Provider:CADEN KIMBALL Location:[facility] Appointment Type:PC Wellness Medicare Appointment Date:10/01/2023 09:30:00 AM Scheduled Provider:ISABEL MARKS Location:[facility] Appointment Type:[facility]M ONC OV Follow Up Future Scheduled Tests Laboratory* Basic Metabolic Panel 03/27/23 * Ferritin 10/04/23 * Complete Blood Count 10/04/23 * Iron Studies 10/04/23 * Complete Metabolic Panel 10/04/23 Radiology* MA Mammo Diagnostic Bilateral w/Scar 09/21/23 [facility] Evaluation + Plan note Future Appointments Appointment Date:10/25/2023 11:30:00 AM Scheduled Provider: Location:[facility] Appointment Type:PC Nurse Injection Appointment Date:11/20/2023 07:00:00 AM Scheduled Provider: Location:[facility] Appointment Type:MA Mammogram Screening Bilateral w/ Scar Appointment Date:11/27/2023 02:00:00 PM Scheduled Provider:AMY JONES Location:[facility] Appointment Type:[facility] OV Follow Up Future Scheduled Tests Radiology* MA Mammo Screening Bilateral w/ Scar 11/20/23 * MA Mammo Screening Bilateral w/ Scar 09/28/23 [facility] Evaluation + Plan note Future Appointments Appointment Date:10/25/2023 11:30:00 AM Scheduled Provider: Location:[facility] Appointment Type:PC Nurse Injection Appointment Date:11/20/2023 07:00:00 AM Scheduled Provider: Location:[facility] Appointment Type:MA Mammogram Screening Bilateral w/ Scar Appointment Date:11/27/2023 02:00:00 PM Scheduled Provider:AMY JONES Location:[facility] Appointment Type:[facility] OV Follow Up Future Scheduled Tests Radiology* MA Mammo Screening Bilateral w/ Scar 11/20/23 [facility] Hospital course Narrative No data available for this section [facility] Hospital Discharge instructions No data available for this section [facility] Progress note No data available for this section [facility] Summary Purpose Family History No Family History Records Found Advance Directives No Advanced Directives Records Found Additional Source Comments Care Team (unrecognized sect ion and content) Personnel Name: CADEN KIMBALL APRN-[facility] Address: [address] [place] [address]- Name: Delfina Giordano Name: Guerda Damon Personnel Name: CADEN KIMBALL APRN-[facility] Address: [address] Name: Delfina Giordano Name: Guerda Damon [facility]: [facility] Address: [address] Name: Delfina Giordano Name: Guerda Damon Personnel Name: [facility]ALL [facility] Address: [address] Name: Delfina Giordano Name: Guerda Damon Care Team Personnel Name: [facility]ALL [facility] Position: Advanced Nursing Home Assistant Administrator Member Role: Primary Care Physician Address: Address: [address] Name: Delfina Giordano Position: Facsimile Machine Operator Member Role: Other Name: CADEN KAY DO Position: [facility] Physician Member Role: Neurologist Address: Address: [address] [place] [address]- Name: Guerda Damon Position: Facsimile Machine Operator Member Role: Other Name: CULLEN RICHEY MD Member Role: Training Systems Officer Address: Address: [address] [place] [address]- [place] Name: DARRIUS SHARPE MD Member Role: Improvement Intern Address: Address: [address] [address]- [place] Name: EVER DALLAS MD Member Role: Oncologist Address: Address: [address] [place] [address] [place] [address]- Care Team Related Persons Name: SHARAD KRAMER Address: [address], [place] [id number] Care Team Personnel Name: CADEN KIMBALL Position: P4 Advanced Nursing Home Assistant Administrator Member Role: Primary Care Physician Address: Address: [address] [place] [address]- Name: Delfina Giordano Position: Facsimile Machine Operator Member Role: Other Name: CADEN KAY DO Position: CV Physician Member Role: Neurologist Address: Address: [address] [place] [id number]- Name: Guerda Damon Position: Facsimile Machine Operator Member Role: Other Name: CULLEN RICHEY MD Member Role: Training Systems Officer Address: Address: [address] [place] [address]- Name: DARRIUS SHARPE MD Member Role: Improvement Intern Address: Address: [address] [address]- Name: EVER DALLAS MD Member Role: Oncologist Address: Address: [address] [place] [address] Hematology and Oncology [address] Care Team Related Persons Name: WILLIAMS SHARAD Tatum Address: [address], [place] [id number] [place] Care Team Personnel Name: CADEN KIMBALL Position: P4 Advanced Nursing Home Assistant Administrator Member Role: Primary Care Physician Address: Address: [address] [place] [address]- Name: Delfina Giordano Position: Facsimile Machine Operator Member Role: Other Name: CADEN KAY DO Position: CV Physician Member Role: Neurologist Address: Address: [address] [place] [id number]- Name: Guerda Damon Position: Facsimile Machine Operator Member Role: Other Name: CULLEN RICHEY MD Member Role: Training Systems Officer Address: Address: [address] [place] [address]- Name: DARRIUS SHARPE MD Member Role: Improvement Intern Address: Address: [address] [address]- Name: EVER DALLAS MD Member Role: Oncologist Address: Address: [address] [place] [address] Hematology and Oncology [place] [id number]- Care Team Related Persons Name: SHARAD KRAMER Address: [facility] [address] [facility] [place] [id number] [place] Care Team Personnel Name: CADEN KIMBALL Position: P4 Advanced Nursing Home Assistant Administrator Member Role: Primary Care Physician Address: Address: [address] [place] [address]- Name: Delfina Giordano Position: Facsimile Machine Operator Member Role: Other Name: CADEN KAY DO Position: CV Physician Member Role: Neurologist Address: Address: [address] [place] [id number]- Name: Guerda Damon Position: Facsimile Machine Operator Member Role: Other Name: CULLEN RICHEY MD Member Role: Training Systems Officer Address: Address: [address] [place] [address]- Name: DARRIUS SHARPE MD Member Role: Improvement Intern Address: Address: [address] [address]- Name: EVER DALLAS MD Member Role: Oncologist Address: Address: [address] [place] [address] Hematology and Oncology [address] Care Team Related Persons Name: SHARAD KRAMER Address: Home [address] [place], [place] [id number] [place] Care Team Personnel Name: CADEN KIMBALL Position: P4 Advanced Nursing Home Assistant Administrator Member Role: Primary Care Physician Address: Address: [address] [place] [address]- Name: Delfina Giordano Position: Facsimile Machine Operator Member Role: Other Name: CADEN KAY DO Position: CV Physician Member Role: Neurologist Address: Address: [address] [place] [id number]- Name: Guerda Damon Position: Facsimile Machine Operator Member Role: Other Name: CULLEN RICHEY MD Member Role: Training Systems Officer Address: Address: [address] [place] [address]- Name: DARRIUS SHARPE MD Member Role: Improvement Intern Address: Address: [address] [address]- Name: EVER DALLAS MD Member Role: Oncologist Address: Address: [address] [place] [address] [place] [address]- Care Team Related Persons Name: SHARAD KRAMER Address: Home [address] [place], [place] [id number] [place] Care Team (unrecognized sect ion and content) Personnel Name: CADEN KIMBALL Address: Address: [address] [place] [address]- Name: Delfina Giordano Name: Guerda Damon Care Team Personnel Name: CADEN KIMBALL Position: P4 Advanced Practice Nurse Member Role: Primary Care Physician Address: Address: [address] [place] [address]- Name: Delfina Giordano Position: P3 Scheduling - Repairer And Checker Advanced Member Role: Other Name: CADEN KAY DO Position: CV Physician Member Role: Neurologist Address: Address: [address] [place] [address] [place] [id number]- Name: Guerda Damon Position: P3 Scheduling - Repairer And Checker Advanced Member Role: Other Name: CULLEN RICHEY MD Member Role: Training Systems Officer Address: Address: [address] [place] [address]- Name: DARRIUS SHARPE MD Member Role: Improvement Intern Address: Address: [address] [address]- Name: EVER DALLAS MD Position: P4 Oncology Provider Member Role: Oncologist Address: Address: [address] [place] [address] [place] [address]- Care Team Related Persons Name: SHARAD KRAMER Address: Home [address] [place], [place] [id number] [place] Care Team Personnel Name: CADEN KIMBALL Position: P4 Advanced Practice Nurse Member Role: Primary Care Physician Address: Address: [address] [place] [address]- Name: Delfina Giordano Position: P3 Scheduling - Repairer And Checker Advanced Member Role: Other Name: CADEN KAY DO Position: CV Physician Member Role: Neurologist Address: Address: [address] [place] [address]- [place] Name: Guerda Damon Position: P3 Scheduling - Repairer And Checker Advanced Member Role: Other Name: CULLEN RICHEY MD Member Role: Training Systems Officer Address: Address: [address] [place] [address]- [place] Name: DARRIUS SHARPE MD Member Role: Improvement Intern Address: Address: [address] [address]- [place] Name: EVER DALLAS MD Position: P4 Oncology Provider Member Role: Oncologist Address: Address: [facility] [place] [address] Hematology and Oncology [place] [id number]- Care Team Related Persons Name: WILLIAMS SHARAD Tatum Address: [address], [place] [id number] [place] Care Team Personnel Name: CADEN KIMBALL APRN-[employer] Position: P4 Advanced Practice Nurse Member Role: Primary Care Physician Address: Address: [address] [place] [address]- Name: Delfina Giordano Position: P3 Scheduling - Repairer And Checker Advanced Member Role: Other Name: CADEN KAY DO Position: CV Physician Member Role: Neurologist Address: Address: [address] [place] [address]- [place] Name: Guerda Damon Position: P3 Scheduling - Repairer And Checker Advanced Member Role: Other Name: CULLEN RICHEY MD Member Role: Training Systems Officer Address: Address: [address] [place] [address]- [place] Name: DARRIUS SHARPE MD Member Role: Improvement Intern Address: Address: [address] [address]- [place] Name: EVER DALLAS MD Position: P4 Oncology Provider Member Role: Oncologist Address: Address: [address] [place] [address] Hematology and Oncology [place] [id number]- Care Team Related Persons Name: SHARAD KRAMER Tatum Address: [address], [place] [phone] [place] Care Team Personnel Name: CADEN KIMBALL APRN-NUTRITION TECH Position: P4 Advanced Practice Nurse Member Role: Primary Care Physician Address: Address: [address] [facility] [place] [address]- Name: Delfina Giordano Position: Facsimile Machine Operator Member Role: Other Name: CADEN KAY DO Position: CV Physician Member Role: Neurologist Address: Address: [address] [facility] [place] [address]- Name: Guerda Damon Position: Facsimile Machine Operator Member Role: Other Name: CULLEN RICHEY MD Member Role: Training Systems Officer Address: Address: [address] [place] [address]- Name: DARRIUS SHARPE MD Member Role: Improvement Intern Address: Address: [address] [address]- Name: EVER DALLAS MD Position: Oncology Provider Member Role: Oncologist Address: Address: [address] [facility] Hematology and Oncology [place], [place] [address] Care Team Related Persons Name: WILLIAMS SHARAD Tatum Address: [place] [address], [place] [id number] INFORMATION SOURCE (unrecogn ized section and content) FOR RECORDS PERTAINING TO PATIENTS WHO ARE OR HAVE BEEN ENROLLED IN A CHEMICAL DEPENDENCY/SUBSTANCEABUSE PROGRAM, SOME INFORMATION MAY BE OMITTED. This clinical summary was aggregated from multiple sources. Caution should be exercised in using it in the provision of clinical care. This summary normalizes information from multiple sources, and as a consequence, information in this document may materially change the coding, format and clinical context of patient data. In addition, data may be omitted in some cases. CLINICAL DECISIONS SHOULD BE BASED ON THE PRIMARY CLINICAL RECORDS. [facility] [employer] provides no warranty or guarantee of the accuracy or completeness of information in this document.
--- NOTE | 2023-12-10 10:57 | STRESSREP_ITS ---
Stress Test Report Date: 12/07/2023 Procedure: Pharmacologic stress nuclear imaging study Indications: Coronary artery disease Consent: Per the patient Procedure: The patient underwent pharmacologic (Regadenoson 0.4mg ) evaluation with a peak heart rate of 127 beats per minute (84%predicted maximal heart rate) and a peak blood pressure of 126/96 mmHg. The baseline ECG demonstrated sinus rhythm with nonspecific intraventricular conduction delay. The peak pharmacologic ECG demonstrated no diagnostic ischemic changes. Rare PVCs noted. There was no complaint of chest discomfort during pharmacologic infusion or recovery. The patient was injected with 15.0 millicuries of technetium 99m Cardiolite and subsequently rest SPECT Cardiolite nuclear imaging was obtained in the horizontal long, vertical long, and short axis views. The patient underwent pharmacologic (Regadenoson) evaluation. The patient was injected with 43.3 millicuries of technetium 99m Cardiolite and subsequently stress SPECT Cardiolite nuclear imaging was obtained in the horizontal long, vertical long, and short axis views. A gated Cardiolite study at peak stress was obtained. The examination was stopped secondary to completion of protocol. Rest and stress SPECT Cardiolite nuclear imaging status post realignment, normalization, and attenuation correction demonstrate no fixed or reversible perfusion defects. There is end systolic thickening and brightening. The gated Cardiolite study demonstrates myocardial thickening and inward wall motion. The reported LVEF is 74%. Impression: 1. Pharmacologic (Regadenoson) evaluation 2. Peak pharmacologic ECG with no diagnostic changes. 3. Rare PVCs. 5. Rest and stress SPECT Cardiolite nuclear imaging demonstrate relative uniform tracer uptake and myocardial perfusion appearing within normal limits. 6. The gated Cardiolite study reports an LVEF of 74%. This note was generated with [employer] software. It may contain incorrect words, spelling, and punctuation that were not noted in checking the note before signing.
== END | disposition home or self-care (01) ==
LOC: CVS 06:35
PROVIDERS: PCP Nurse Practitioner Primary Care; Referring Provider Nurse Practitioner Family; Visit Provider Nurse Practitioner Family
DX: I25.10 Atherosclerotic heart disease of native coronary artery without angina pectoris (principal); I44.7 Left bundle-branch block, unspecified
CPT/HCPCS: 78452; 93017; 93306; A9500; Q9957; A4216; C8929; J2785